=== PATIENT | male | born 1975 | race Caucasian/White ===

== ENCOUNTER 2023-09-17 11:51 | Outpatient (REF) | payer OTHER, SELFPAY ==
[2023-09-17 12:07] LABS: MANUAL DIFF FLAG NO
[2023-09-17 12:36] LABS: Estimated Average Glucose 105 mg/dL; Hemoglobin A1c % 5.3 % (<6.0)
[2023-09-17 12:41] LABS: Basophils Percent Auto 0.3 % (0-2); Eosinophils Absolute Auto 0.1 X10*3/uL (0.0-0.4); Eosinophils Percent Auto 2.2 % (0-4); Imm Gran Abs Auto 0.01 X10*3/uL (0.00-0.03); Imm Gran Pct Auto 0.2 % (0.0-0.4); Lymphocytes Absolute Auto 2.5 X10*3/uL (1.2-4.9); Lymphocytes Percent Auto 40.1 % (20-40); Mean Corpuscular HGB Conc 33.3 g/dl (31.0-36.0); Mean Corpuscular Hemoglobin 28.5 pg (27.0-33.0); Mean Corpuscular Volume 85.6 fL (80.0-98.0); Mean Platelet Volume 10.7 fL (9.4-12.4); Monocytes Absolute Auto 0.6 X10*3/uL (0.1-1.2); Monocytes Percent Auto 10.1 % (2-11); Neutrophils Percent Auto 47.1 % (45-73); Platelet Count 242 X10*3/uL (160-400); Red Blood Count 5.61 X10*6/uL (4.60-5.80); Red Cell Distribution Width 12.8 % (11.0-16.0); White Blood Count 6.3 X10*3/uL (4.8-10.8)
[2023-09-17 13:15] LABS: Alanine Aminotransferase 28 U/L (0-40); Albumin Level 3.9 g/dL (3.5-5.0); Alkaline Phosphatase 83 U/L (39-117); Anion Gap 12 (12-20); Aspartate Amino Transferase 22 U/L (5-37); Bilirubin Total 0.6 mg/dL (0.0-1.0); Blood Urea Nitrogen 17 mg/dL (9-16); Carbon Dioxide 27 mmol/L (22-29); Chloride 110 mmol/L (96-108); Cholesterol 160 mg/dL (<200); Estimated Glomerular Filt Rate > 60; Glucose Random 92 mg/dL (60-115); HDL Cholesterol 39 mg/dL (>40); LDL Cholesterol Calculated 108 mg/dL (<100); Potassium 4.1 mmol/L (3.3-5.1); Sodium 145 mmol/L (135-145); Thyroid Stimulating Hormone 2.71 uIU/mL (0.32-4.0); Total Protein 6.9 g/dL (6.5-8.0); Triglycerides 67 mg/dL (<150)
== END 2023-09-17 11:52 | disposition home or self-care (01) ==
LOC: HO.LAB 11:51
PROVIDERS: PCP Internal Medicine; Visit Provider Internal Medicine
DX: Z00.01 Encounter for general adult medical examination with abnormal findings (principal); E66.01 Morbid (severe) obesity due to excess calories; E78.00 Pure hypercholesterolemia, unspecified; R55 Syncope and collapse; I10 Essential (primary) hypertension; Z86.73 Personal history of transient ischemic attack (TIA), and cerebral infarction without residual deficits
CPT/HCPCS: 36415; 80053; 80061; 83036; 84443; 85025

== ENCOUNTER 2023-10-12 14:46 | Outpatient (AMB) | payer OTHER, SELFPAY ==
--- NOTE | 2023-10-12 14:51 | HO.NEPHOV ---
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 He has neurological issues for which he has been seen in [facility], Division of Neurology. He underwent tilt table testing which was negative. He had skin biopsy which was positive for decreased epidermal nerve fiber density. He also had EMG and nerve conduction studies which showed mild degree of fibrillation potentials in the right tibialis anterior and medial gastrocnemius and chronic denervation in right peroneal muscle. He also has a mild L5-S1 radiculopathy, right ulnar neuropathy, mild cervical radiculopathy at C6. He also feels he has light memory loss and occasionally drops things from his right hand. He gets lightheadedness intermittently. He has 2 episodes of syncope recently. He feels he has salads in walking as he get lightheaded. He is known to have hypertension as well as sleep apnea. He is on CPAP. He has high BMI. He had extensive cardiac and neurological workup. He has been on amlodipine as well as carvedilol. He denies any chest pain, shortness of breath, proximal nocturnal dyspnea, orthopnea, worsening pedal edema or urinary symptoms. He claims to be compliant with his blood pressure medications. He has no history of any drug use. He denies any flushing, diarrhea, palpitation. There is no known documented history of any autonomic neuropathy. He is not known to have any cardiomyopathy. He has no family history of any renal or neurological issues. [facility] Medical History (Updated 11/06/23 @ 09:04 by Milad Segovia MD) High cholesterol Chronic neurologic disease Sleep apnea Hypertension Surgical History (Updated 10/10/23 @ 14:39 by Danyelle Lala MA) History of testicular surgery Family History (Updated 10/12/23 @ 14:59 by Danyelle Lala MA) Father Diabetes Hypertension Mother Diabetes Hypertension Social History (Updated 10/12/23 @ 15:01 by Danyelle Lala MA) Alcohol intake: current Comment: Rare Patient Tobacco Use Status: Never used Tobacco Physical Exam Vital Signs: Last Vital Signs Pulse 65 10/12/23 14:53 BP 132/72 10/12/23 14:53 Pulse Ox 95 10/12/23 14:53 Oxygen Delivery Method Room Air 10/12/23 14:53 BMI result Body Mass Index 45.1 Const General: comfortable and no acute distress Orientation/consciousness: patient oriented x3 HEENT Head: Yes normocephalic Mouth: Normal oral and palatal mucosa present Eyes EOM: EOMs intact bilaterally Neck Neck: Yes supple Resp Auscultation: clear to auscultation bilaterally Cardio Jugular venous distension: no JVD Rate: regular rate GI Palpation (GI): Soft to palpation Auscultation: normal bowel sounds General: Yes no CVA tenderness Back/Spine/Pelvis Back: no CVA tenderness Skin General skin exam: no rashes or lesions noted Neuro General: patient oriented x3 and moves all extremities Extrem General: Yes no pedal edema Results Reviewed Nephrology Results: Hgb 16.0 g/dl (14.0-18.0) 09/17/23 WBC 6.3 X10*3/uL (4.8-10.8) 09/17/23 Plt Count 242 X10*3/uL (160-400) 09/17/23 Sodium 145 mmol/L (135-145) 09/17/23 Potassium 4.1 mmol/L (3.3-5.1) 09/17/23 Chloride 110 mmol/L (96-108) H 09/17/23 Carbon Dioxide 27 mmol/L (22-29) 09/17/23 BUN 17 mg/dL (9-16) H 09/17/23 Creatinine 1.00 mg/dL (0.5-1.4) 09/17/23 Calcium 9.0 mg/dL (8.4-10.2) 09/17/23 Assessment & Plan Assessment & Plan (1) Hypertension: Code(s): I10 - Essential (primary) hypertension Category: Medical Qualifiers: Hypertension type: primary hypertension Qualified Code(s): I10 - Essential (primary) hypertension Plan Charles has longstanding hypertension and is currently on 2 antihypertensive medications. He is not known to have any hypokalemia, hypercalcemia, uncontrolled thyroid disorders. He has obstructive sleep apnea and is compliant with CPAP. He does not consume excess sodium in the diet. His renal functions are at baseline. He is not known to have any proteinuria. I asked him to continue on his current medications for now. I plan to do a 24 hour blood pressure monitor for detail evaluation. He has no diagnosis of POTS syndrome or any autonomic neuropathy. He has chronic neurological issues. More than 50% time spent discussing about possible etiologies and management strategies. I spoke to his on the phone during his office visit. Answered all questions and follow-up appointment given. Coding Level of Care Code New Pt Level 4 (06625) Diagnoses Primary hypertension I10 Hypertension type: primary hypertension
[2023-10-12 14:53] VITALS: BP 132/72; PULSE 65; O2SAT 95; BMI 45.1
== END 2023-10-12 15:24 | disposition home or self-care (01) ==
PROVIDERS: PCP Internal Medicine; Visit Provider Internal Medicine Nephrology
DX: I10 Essential (primary) hypertension (principal)
CPT/HCPCS: 99204

== ENCOUNTER → 2023-10-12 14:46 | Outpatient (BNVA) | payer OTHER, SELFPAY | PROVIDERS: PCP Internal Medicine; Visit Provider Internal Medicine Nephrology ==

== ENCOUNTER 2023-11-06 14:26 | Outpatient (AMB) | payer OTHER, SELFPAY ==
[2023-11-06 14:55] VITALS: BP 134/86; PULSE 64; O2SAT 97; BMI 44.4
--- NOTE | 2023-11-06 14:55 | HO.NEPHOV ---
Vital Signs 11/06/23 14:55 Height 6 ft Weight 327 lb 4 oz BMI 44.4 BP 134/86 Blood Pressure Location Rt brachial Position Sitting Pulse 64 Pulse Source Pulse Oximeter Pulse Oximetry (%) 97 Oxygen Delivery Method Room Air Intake Visit Reasons: Hematuria- [facility]/ Confirmed Patient Educator Required: No Accompanied by: Self / Same As Patient Allergies No Known Allergies Allergy (Verified 11/06/23 14:59) HPI Comments Details: I had the privilege of seeing Charles in follow up for labile hypertension. He has neurological issues for which he has been seen in [facility], Division of Neurology. He underwent tilt table testing which was negative. He had skin biopsy which was positive for decreased epidermal nerve fiber density. He also had EMG and nerve conduction studies which showed mild degree of fibrillation potentials in the right tibialis anterior and medial gastrocnemius and chronic denervation in right peroneal muscle. He also has a mild L5-S1 radiculopathy, right ulnar neuropathy, mild cervical radiculopathy at C6. He also feels he has light memory loss and occasionally drops things from his right hand. He gets lightheadedness intermittently. He has 2 episodes of syncope recently. He feels he has salads in walking as he get lightheaded. He is known to have hypertension as well as sleep apnea. He is on CPAP. He has high BMI. He had extensive cardiac and neurological workup. He has been on amlodipine as well as carvedilol. He denies any chest pain, shortness of breath, proximal nocturnal dyspnea, orthopnea, worsening pedal edema or urinary symptoms. He claims to be compliant with his blood pressure medications. He has no history of any drug use. He denies any flushing, diarrhea, palpitation. There is no known documented history of any autonomic neuropathy. He is not known to have any cardiomyopathy. He has no family history of any renal or neurological issues. He recently had hematuria with left flank pain . He also had right sided abdominal pain. He was seen in [place] [facility] . He had CT with contrast which didnt show any significant abnormailities. [facility] Medical History (Updated 11/06/23 @ 15:42 by Milad Segovia MD) High cholesterol Chronic neurologic disease Sleep apnea Hypertension Surgical History History of testicular surgery Family History Father Diabetes Hypertension Mother Diabetes Hypertension Social History Alcohol intake: current Comment: Rare Patient Tobacco Use Status: Never used Tobacco Physical Exam Vital Signs: Last Vital Signs Pulse 64 11/06/23 14:55 BP 134/86 11/06/23 14:55 Pulse Ox 97 11/06/23 14:55 Oxygen Delivery Method Room Air 11/06/23 14:55 BMI result Body Mass Index 44.4 Const General: comfortable and no acute distress Orientation/consciousness: patient oriented x3 HEENT Head: Yes normocephalic Mouth: Normal oral and palatal mucosa present Eyes EOM: EOMs intact bilaterally Neck Neck: Yes supple Resp Auscultation: clear to auscultation bilaterally Cardio Jugular venous distension: no JVD Rate: regular rate GI Palpation (GI): Soft to palpation Auscultation: normal bowel sounds General: Yes no CVA tenderness Back/Spine/Pelvis Back: no CVA tenderness Skin General skin exam: no rashes or lesions noted Neuro General: patient oriented x3 and moves all extremities Extrem General: Yes no pedal edema Results Reviewed Nephrology Results: Hgb 16.0 g/dl (14.0-18.0) 09/17/23 WBC 6.3 X10*3/uL (4.8-10.8) 09/17/23 Plt Count 242 X10*3/uL (160-400) 09/17/23 Sodium 145 mmol/L (135-145) 09/17/23 Potassium 4.1 mmol/L (3.3-5.1) 09/17/23 Chloride 110 mmol/L (96-108) H 09/17/23 Carbon Dioxide 27 mmol/L (22-29) 09/17/23 BUN 17 mg/dL (9-16) H 09/17/23 Creatinine 1.00 mg/dL (0.5-1.4) 09/17/23 Calcium 9.0 mg/dL (8.4-10.2) 09/17/23 Assessment & Plan Assessment & Plan (1) Hypertension: Code(s): I10 - Essential (primary) hypertension Category: Medical Qualifiers: Hypertension type: primary hypertension Qualified Code(s): I10 - Essential (primary) hypertension (2) Renal calculus: Code(s): N20.0 - Calculus of kidney Category: Medical Plan Charles has longstanding hypertension and is currently on 2 antihypertensive medications. He is not known to have any hypokalemia, hypercalcemia, uncontrolled thyroid disorders. He has obstructive sleep apnea and is compliant with CPAP. His renal functions had been at baseline which has gone up marginally , likely due to renal calculus. He is not known to have any proteinuria. I asked him to continue on his current medications for now. I ordered 24 hour urine for stone screen and plan to do a 24 hour blood pressure monitor with time for detail evaluation. He has no diagnosis of POTS syndrome or any autonomic neuropathy. He has chronic neurological issues. I plan to repeat renal function. I will do a renal USS with time for F/U. I plan to start him on chlorthalidone and or K citrate at next visit. More than 50% time spent discussing about possible etiologies and management strategies. Answered all questions and follow-up appointment given. Orders: Orders Blood Urea Nitrogen Today I10 - Essential (primary) hypertension, N20.0 - Calculus of kidney Electrolytes Today I10 - Essential (primary) hypertension, N20.0 - Calculus of kidney Sodium, 24Hr Urine Group Today I10 - Essential (primary) hypertension, N20.0 - Calculus of kidney Calcium, 24 Hr Ur Today I10 - Essential (primary) hypertension, N20.0 - Calculus of kidney Oxalate, 24 Hr Today I10 - Essential (primary) hypertension, N20.0 - Calculus of kidney Citric Acid 24hr Urine Today I10 - Essential (primary) hypertension, N20.0 - Calculus of kidney Basic Metabolic Panel Today I10 - Essential (primary) hypertension, N20.0 - Calculus of kidney Calcium Today I10 - Essential (primary) hypertension, N20.0 - Calculus of kidney UA w Microscopic Today I10 - Essential (primary) hypertension, N20.0 - Calculus of kidney Uric Acid Today I10 - Essential (primary) hypertension, N20.0 - Calculus of kidney Creatinine Today I10 - Essential (primary) hypertension, N20.0 - Calculus of kidney Uric Acid, 24Hr Urine Group Today I10 - Essential (primary) hypertension, N20.0 - Calculus of kidney Coding Level of Care Code Est Pt Level 4 (79933) Diagnoses Primary hypertension I10 Hypertension type: primary hypertension Renal calculus N20.0
== END 2023-11-06 15:51 | disposition home or self-care (01) ==
PROVIDERS: PCP Internal Medicine; Visit Provider Internal Medicine Nephrology
DX: I10 Essential (primary) hypertension (principal); N20.0 Calculus of kidney
CPT/HCPCS: 99214

== ENCOUNTER → 2023-11-06 14:26 | Outpatient (BNVA) | payer OTHER, SELFPAY | PROVIDERS: PCP Internal Medicine; Visit Provider Internal Medicine Nephrology ==

== ENCOUNTER 2024-02-12 13:00 | Outpatient (REF) | payer OTHER, SELFPAY ==
[2024-02-12 14:12] LABS: Anion Gap 10 (12-20); Blood Urea Nitrogen 16 mg/dL (9-16); Calcium 9.2 mg/dL (8.4-10.2); Carbon Dioxide 28 mmol/L (22-29); Chloride 107 mmol/L (96-108); Estimated Glomerular Filt Rate > 60; Glucose Random 108 mg/dL (60-115); Sodium 141 mmol/L (135-145); Uric Acid 5.7 mg/dL (3.4-7.0)
== END 2024-02-12 13:01 | disposition home or self-care (01) ==
LOC: HO.LAB 13:00
PROVIDERS: PCP Internal Medicine; Visit Provider Internal Medicine Nephrology
DX: N20.0 Calculus of kidney (principal); I10 Essential (primary) hypertension
CPT/HCPCS: 36415; 80048; 84550

== ENCOUNTER 2024-02-14 11:40 | Outpatient (REF) | payer OTHER, SELFPAY ==
[2024-02-14 12:57] LABS: Creatinine, mg/dL 153.94
[2024-02-14 13:00] LABS: Uric Acid, mg/dL 58.7 mg/dL
[2024-02-14 13:49] LABS: Creatinine, 24Hr Urine 2.9 G/Day (1.0-2.0); Total Volume 24 Hour Urine 1925 mL
[2024-02-16 18:38] LABS: Calcium, 24 Hr Urine 285 mg/24 h; Calcium/Creatinine Ratio 100 mg/g creat (30-210); Creatinine 24Hr Urine 2.85 g/24 h (0.50-2.15)
[2024-02-20 21:57] LABS: 24hr Urine Total Volume 1925 mL; Citric Acid, 24hr Urine 629 mg/24 h (100-1300); Citric Acid/Creat Ratio 24U 217 mg/g creat (60-660)
[2024-02-28 05:09] LABS: 24hr Urine Total Volume 1925 mL
== END 2024-02-14 11:41 | disposition home or self-care (01) ==
LOC: HO.LNP 11:40
PROVIDERS: Visit Provider Internal Medicine Nephrology
DX: N20.0 Calculus of kidney (principal); I10 Essential (primary) hypertension
CPT/HCPCS: 82340; 82507; 83945; 84300; 84560

== ENCOUNTER 2024-02-22 10:49 | Outpatient (AMB) | payer OTHER, SELFPAY ==
--- NOTE | 2024-02-22 10:52 | HO.NEPHOV_ITS ---
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 He has neurological issues for which he has been seen in [facility], Division of Neurology. He underwent tilt table testing which was negative. He had skin biopsy which was positive for decreased epidermal nerve fiber density. He also had EMG and nerve conduction studies which showed mild degree of fibrillation potentials in the right tibialis anterior and medial gastrocnemius and chronic denervation in right peroneal muscle. He also has a mild L5-S1 radiculopathy, right ulnar neuropathy, mild cervical radiculopathy at C6. He also feels he has light memory loss and occasionally drops things from his right hand. He gets lightheadedness intermittently. He has 2 episodes of syncope recently. He feels he has salads in walking as he get lightheaded. He is known to have hypertension as well as sleep apnea. He is on CPAP. He has high BMI. He had extensive cardiac and neurological workup. He has been on amlodipine as well as carvedilol. He denies any chest pain, shortness of breath, proximal nocturnal dyspnea, orthopnea, worsening pedal edema or urinary symptoms. He claims to be compliant with his blood pressure medications. He h as no history of any drug use. He denies any flushing, diarrhea, palpitation. There is no known documented history of any autonomic neuropathy. He is not known to have any cardiomyopathy. He has no family history of any renal or neurological issues. He recently had hematuria with left flank pain . He also had right sided abdominal pain. He was seen in [place] [facility] . He had CT with contrast which didnt show any significant abnormailities. He also recently had a UTI and was seen in [place] [facility]. [facility] Medical History (Updated 11/06/23 @ 15:42 by Milad Segovia MD) High cholesterol Chronic neurologic disease Sleep apnea Hypertension Surgical History History of testicular surgery Family History Father Diabetes Hypertension Mother Diabetes Hypertension Social History Alcohol intake: current Comment: Rare Patient Tobacco Use Status: Never used Tobacco Review of Systems Const All systems reviewed & are unremarkable except as noted in HPI and below Physical Exam Vital Signs: Last Vital Signs Pulse 61 02/22/24 10:53 BP 130/80 02/22/24 10:53 Pulse Ox 96 02/22/24 10:53 Oxygen Delivery Method Room Air 02/22/24 10:53 BMI result Body Mass Index 44.2 Const General: comfortable and no acute distress Orientation/consciousness: patient oriented x3 HEENT Head: Yes normocephalic Mouth: Normal oral and palatal mucosa present Eyes EOM: EOMs intact bilaterally Neck Neck: Yes supple Resp Auscultation: clear to auscultation bilaterally Cardio Jugular venous distension: no JVD Rate: regular rate GI Palpation (GI): Soft to palpation Auscultation: normal bowel sounds General: Yes no CVA tenderness Back/Spine/Pelvis Back: no CVA tenderness Skin General skin exam: no rashes or lesions noted Neuro General: patient oriented x3 and moves all extremities Extrem General: Yes no pedal edema Results Reviewed Nephrology Results: Hgb 16.0 g/dl (14.0-18.0) 09/17/23 WBC 6.3 X10*3/uL (4.8-10.8) 09/17/23 Plt Count 242 X10*3/uL (160-400) 09/17/23 Sodium 141 mmol/L (135-145) 02/12/24 Potassium 4.0 mmol/L (3.3-5.1) 02/12/24 Chloride 107 mmol/L (96-108) 02/12/24 Carbon Dioxide 28 mmol/L (22-29) 02/12/24 BUN 16 mg/dL (9-16) 02/12/24 Creatinine 0.97 mg/dL (0.5-1.4) 02/12/24 Calcium 9.2 mg/dL (8.4-10.2) 02/12/24 Assessment & Plan Assessment & Plan (1) Hypertension: Code(s): I10 - Essential (primary) hypertension Category: Medical Qualifiers: Hypertension type: primary hypertension Qualified Code(s): I10 - Essential (primary) hypertension (2) Renal calculus: Code(s): N20.0 - Calculus of kidney Category: Medical Plan Charles has longstanding hypertension and is currently on 2 antihypertensive medications. He is not known to have any hypokalemia, hypercalcemia, uncontrolled thyroid disorders. He has obstructive sleep apnea and is compliant with CPAP. His renal functions had been at baseline .He is not known to have any proteinuria. I asked him to continue on his current medications for now. He has no diagnosis of POTS syndrome or any autonomic neuropathy. He has chronic neurological issues. I ordered a follow up renal USS . I plan to start him on chlorthalidone and or K citrate, if he continues to have stones. Answered all questions and follow-up appointment given. Orders: Orders US renal BI Today I10 - Essential (primary) hypertension, N20.0 - Calculus of kidney Coding Level of Care Code Est Pt Level 4 (38347) Diagnoses Primary hypertension I10 Hypertension type: primary hypertension Renal calculus N20.0
[2024-02-22 10:53] VITALS: BP 130/80; PULSE 61; O2SAT 96; BMI 44.2
== END 2024-02-22 11:30 | disposition home or self-care (01) ==
PROVIDERS: PCP Internal Medicine; Visit Provider Internal Medicine Nephrology
DX: I10 Essential (primary) hypertension (principal); N20.0 Calculus of kidney
CPT/HCPCS: 99214

== ENCOUNTER → 2024-02-22 10:49 | Outpatient (BNVA) | payer OTHER, SELFPAY | PROVIDERS: PCP Internal Medicine; Visit Provider Internal Medicine Nephrology ==

== ENCOUNTER 2024-03-03 08:43 | Outpatient (REF) | payer OTHER, SELFPAY ==
--- NOTE | ~2024-03-03 | US_ITS ---
EXAMINATION: US RETROPERITONEAL COMPLETE (RENAL) CLINICAL INFORMATION: Primary hypertension.. COMPARISON: None available. TECHNIQUE: Real-time imaging of the kidneys and bladder. Color Doppler exam was used. FINDINGS: RIGHT KIDNEY: 12.5 x 4.5 x 7.9 cm (SAG x AP x TRV). The kidney is normal in size, contour, and echogenicity. Renal cortical thickness is normal. No calculi or suspicious focal parenchymal lesions. No hydronephrosis. LEFT KIDNEY: 11.7 x 6 x 6.9 cm (SAG x AP x TRV). The kidney is normal in size, contour, and echogenicity. Normal variant of hypertrophied column of Anish. Renal cortical thickness is normal. No calculi or suspicious focal parenchymal lesions. No hydronephrosis. Anechoic cyst in the upper pole. There is a 1.2 cm cyst in the 3.8 cm cyst. No follow-up imaging is recommended for simple renal cyst. US/US renal BI IMPRESSION: Normal ultrasound of kidneys. Electronically signed by: Justice Garvey MD 03/03/2024 04:03 PM EDT
== END 2024-03-03 08:44 | disposition home or self-care (01) ==
LOC: HO.US 08:43
PROVIDERS: PCP Internal Medicine; Visit Provider Internal Medicine Nephrology
DX: N20.0 Calculus of kidney (principal); I10 Essential (primary) hypertension
CPT/HCPCS: 76775

== ENCOUNTER 2024-03-05 09:08 | Outpatient (AMB) | payer OTHER, SELFPAY ==
--- NOTE | 2024-03-05 09:13 | A.OFFVIS_ITS ---
Intake Visit Reasons: hematuria Intake Note: Patient is present for HEMATURIA Urology Medication:NONE Antibiotic Allergy:NONE Blood Thinner:NONE Magneto Specialist Required: No Allergies No Known Allergies Allergy (Verified 03/05/24 09:14) HPI Comments Details: Charles is a 48-year-old male who is here evaluation for hematuria. The patient states that several weeks ago he had pain with urination and looked into the toilet and saw blood in the urine. He went to [facility] emergency room he states that he had evaluation including CT imaging and they told him they could not find any problems. About 6 weeks ago he again noted issues with urination pain in difficult stream he was seen at [place] and treated for urinary tract infection. He states he has noted changes with urination urgency and frequency. AUA symptom score 11. He was referred for urology evaluation. Chart reviewed renal ultrasound --was within normal limits small renal cyst. Negative as for kidney stones mass or hydronephrosis. I will obtain records from [facility] and [place]. The patient also notes that he is followed in [place] for a neurological problem that they told him was dis autonomic area. 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 he has also had problems of dizziness. His current medications are for hypertension and cholesterol. I have discussed further evaluation with cystoscopy will check PSA. Will send urine for cytology. [facility] Medical History High cholesterol Chronic neurologic disease Sleep apnea Hypertension Surgical History History of testicular surgery Family History Father Diabetes Hypertension Mother Diabetes Hypertension Social History Alcohol intake: current Comment: Rare Patient Tobacco Use Status: Never used Tobacco Review of Systems Const All systems reviewed & are unremarkable except as noted in HPI and below Reports no additional complaints Eyes Reports no additional complaints ENT Reports no additional complaints Card Reports no additional complaints Resp Reports no additional complaints GI Reports no additional complaints Reports as per HPI Musc Reports no additional complaints Skin/Breast Reports system reviewed and no additional complaints, except as documented Neuro Reports no additional complaints Psych Reports no additional complaints Endo Reports no additional complaints Jose/Lymph Reports no additional complaints Aller/Immun Reports no additional complaints Physical Exam Const General: healthy appearing, no acute distress and well developed Nutritional Appearance: overweight Orientation/consciousness: patient oriented x3 HEENT Head: Yes normocephalic and Yes atraumatic Eyes Conjunctivae: conjunctivae normal Neck Neck: Yes normal visual inspection Chest Chest palpation & inspection: normal inspection of the chest Resp Effort & Inspection: normal respiratory effort Cardio Rate: regular rate GI Inspection: Yes normal to inspection Palpation (GI): Soft to palpation Skin General skin exam: no rashes or lesions noted Neuro General: patient oriented x3 Extrem General: No pedal edema Psych Appearance: grossly normal Affect: normal affect Office Procedures Post Void Residual Post Residual Void Post Void Residual (PVR): 24 [id number] Void Residual by ultrasound Results AMB Urinalysis, Automated UA Leukoctes 0 Alicia/uL Last Edit by TERRY Sequeira on 03/05/24 09:28 UA Nitrite Negative Last Edit by TERRY Sequeira on 03/05/24 09:28 UA Urobilinogen 0.2 mg/dL Last Edit by TERRY Sequeira on 03/05/24 09:2 8 UA Protein 15 mg/dL Last Edit by TERRY Sequeira on 03/05/24 09:28 UA pH 6.0 Last Edit by TERRY Sequeira on 03/05/24 09:28 UA Blood 0 Jeronimo/uL Last Edit by TERRY Sequeira on 03/05/24 09:28 UA Specific [place] 1.025 Last Edit by TERRY Sequeira on 03/05/24 09: 28 UA Ketone Negative Last Edit by TERRY Sequeira on 03/05/24 09:28 UA Bilirubin 0 mg/dL Last Edit by TERRY Sequeira on 03/05/24 09:28 UA Glucose 0 mg/dL Last Edit by TERRY Sequeira on 03/05/24 09:28 Quality Reporting (2019) Benign Prostatic Hyperplasia ([facility] 771) AUA symptom score: 11 Quality of life due to urinary symptoms: If you were to spend the rest of your life with your urinary condition the way it is now, how would you feel about that?: Mostly dissatisfied Results Reviewed Results Reviewed: Laboratory Last Values Urine pH (Auto) 6.0 03/05/24 09:27 Specific [place] (Auto) 1.025 03/05/24 09:27 Urine Protein (Auto) 15 mg/dL 03/05/24 09:27 Glucose (UA)(Auto) 0 mg/dL 03/05/24 09:27 Urine Ketones (Auto) Negative 03/05/24 09:27 Urine Blood (Auto) 0 Jeronimo/uL 03/05/24 09:27 Urine Nitrite (Auto) Negative 03/05/24 09:27 Urine Bilirubin (Auto) 0 mg/dL 03/05/24 09:27 Urine Urobilinogen (Auto) 0.2 mg/dL 03/05/24 09:27 Leukocyte Esterase (Auto) 0 Alicia/uL 03/05/24 09:27 Date of Service: 03/03/24 EXAMINATION: US RETROPERITONEAL COMPLETE (RENAL) CLINICAL INFORMATION: Primary hypertension.. COMPARISON: None available. TECHNIQUE: Real-time imaging of the kidneys and bladder. Color Doppler exam was used. FINDINGS: RIGHT KIDNEY: 12.5 x 4.5 x 7.9 cm (SAG x AP x TRV). The kidney is normal in size, contour, and echogenicity. Renal cortical thickness is normal. No calculi or suspicious focal parenchymal lesions. No hydronephrosis. LEFT KIDNEY: 11.7 x 6 x 6.9 cm (SAG x AP x TRV). The kidney is normal in size, contour, and echogenicity. Normal variant of hypertrophied column of Anish. Renal cortical thickness is normal. No calculi or suspicious focal parenchymal lesions. No hydronephrosis. Anechoic cyst in the upper pole. There is a 1.2 cm cyst in the 3.8 cm cyst. No follow-up imaging is recommended for simple renal cyst. IMPRESSION: Normal ultrasound of kidneys. Assessment & Plan Assessment & Plan (1) Screening PSA (prostate specific antigen): Code(s): Z12.5 - Encounter for screening for malignant neoplasm of prostate Category: Medical (2) UTI (urinary tract infection): Code(s): N39.0 - Urinary tract infection, site not specified Category: Medical (3) Hematuria: Code(s): R31.9 - Hematuria, unspecified Category: Medical (4) Urinary frequency: Code(s): R35.0 - Frequency of micturition Category: Medical Plan He was referred for urology evaluation. Chart reviewed renal ultrasound --was within normal limits small renal cyst. Negative as for kidney stones mass or hydronephrosis. I will obtain records from [facility] and [place]. I have discussed further evaluation with cystoscopy will check PSA. Will send urine for cytology. Orders: Orders AMB Urinalysis Automated Today Z13.9 - Encounter for screening, unspecified PSA,Total (Free>4and<10) Today Z12.5 - Encounter for screening for malignant neoplasm of prostate Patient Instructions: The patient had an opportunity to ask questions regarding treatment plan. The patient expressed understanding and agreement with the above treatment plan. The patient is aware they should contact our office by phone for worsening of their current condition or the appearance of new symptoms. Compliance is encouraged with any medications and followup testing that is ordered. It is a privilege to be allowed the opportunity to participate in the urologic care of your patient. If you have any questions or concerns regarding treatment for the above conditions please do not hesitate to contact me. The office telephone contact is [phone]. This note is constructed in part using voice recognition software. While every effort has been made to ensure accuracy harness builder errors may have been included. Yours sincerely, Mario Fountain MD Coding Level of Care Code New Pt Level 4 (72198) Diagnoses Screening PSA (prostate specific antigen) Z12.5 UTI (urinary tract infection) N39.0 Hematuria R31.9 Urinary frequency R35.0 CPT Codes Post Residual Void - PVR CPT Code: 25542-Opby Void Residual by ultrasound ([id number]) AUA Symptom Score AUA Incomplete emptying - It does not feel like I empty my bladder all the way.: 0 - Not at all Frequency - I have to go again less than two hours after I finish urinating.: 5 - Almost always Intermittency - I stop and start again several times when I urinate.: 0 - Not at all Urgency - It is hard to wait when I have to urinate.: 5 - Almost always Weak stream - I have a weak urinary stream.: 0 - Not at all Straining - I have to push or strain to begin urination.: 0 - Not at all Nocturia - I get up to urinate after I go to bed until the time I get up in the morning.: 1 time AUA Symptom Score: 11 Quality of life due to urinary symptoms: If you were to spend the rest of your life with your urinary condition the way it is now, how would you feel about that?: Mostly dissatisfied Source: Basilio THOMPSON, Parul ALVAREZ Jr, [place] MP, et al, and the Measurement Committee of the [employer]. The [employer] [employer] symptom index for benign prostatic hyperplasia. J Urol. 1992; 148: 6587-8544. Copyright 1992 [employer] [employer]
== END 2024-03-05 10:13 | disposition home or self-care (01) ==
PROVIDERS: PCP Internal Medicine; Visit Provider Urology
DX: Z12.5 Encounter for screening for malignant neoplasm of prostate (principal); N39.0 Urinary tract infection, site not specified; R31.9 Hematuria, unspecified; R35.0 Frequency of micturition; Z13.9 Encounter for screening, unspecified
CPT/HCPCS: 99204

== ENCOUNTER → 2024-03-05 09:08 | Outpatient (BNVA) | payer OTHER, SELFPAY | PROVIDERS: PCP Internal Medicine; Visit Provider Urology | DX: R31.9 Hematuria, unspecified (principal); R35.0 Frequency of micturition; N39.0 Urinary tract infection, site not specified | CPT/HCPCS: 51798; 81003 ==

== ENCOUNTER 2024-03-05 10:14 | Outpatient (REF) | payer OTHER, SELFPAY ==
[2024-03-05 12:02] LABS: PSA,Total (Free>4and<10) 1.73 ng/mL (0.00-4.00)
== END 2024-03-05 10:15 | disposition home or self-care (01) ==
LOC: HO.10HDL 10:14
PROVIDERS: Visit Provider Urology
DX: Z12.5 Encounter for screening for malignant neoplasm of prostate (principal); Z13.9 Encounter for screening, unspecified
CPT/HCPCS: 36415; 84153

== ENCOUNTER 2024-03-21 11:31 | Outpatient (REF) | payer OTHER, SELFPAY ==
[2024-03-21 12:20] LABS: Urine Cytology See Pathology rpt
[2024-03-21 12:28] LABS: Appearance Urine Clear; Color Urine Yellow; Glucose Urine UA 500 mg/dL (Negative); Leukocyte Esterase Urine Negative (Negative); Nitrite Urine Negative (Negative); PH 5.5 (5.0-9.0); Specific Gravity - Urine 1.025 (1.005-1.025); Urine Blood Negative (Negative); Urine Ketones Trace mg/dL (Negative); Urine Protein Negative (Neg-Trace)
[2024-03-21 12:31] LABS: Bacteria Urine None Seen (None Seen); Hyaline Casts Urine 0-2 /LPF (0-2); RBC Urine 0-2 /HPF (0-2); Squamous Epithelial Cell Urine 0-2 /HPF (0-2); WBC Urine 0-5 /HPF (0-5)
== END 2024-03-21 11:32 | disposition home or self-care (01) ==
LOC: HO.LAB 11:31
PROVIDERS: Internal Medicine Nephrology; PCP Internal Medicine; Visit Provider Urology
DX: N20.0 Calculus of kidney (principal); I10 Essential (primary) hypertension; R35.0 Frequency of micturition; R31.9 Hematuria, unspecified; N39.0 Urinary tract infection, site not specified; Z12.5 Encounter for screening for malignant neoplasm of prostate
CPT/HCPCS: 81001; 88112

== ENCOUNTER 2024-03-24 13:29 | Outpatient (AMB) | payer OTHER, SELFPAY ==
--- NOTE | 2024-03-24 13:34 | MHC.OFFVIS ---
Intake Visit Reasons: cysto/PSA Intake Note: Patient is present for Cystoscopy/PSA Urology Medication:NONE Antibiotic Allergy:NONE Blood Thinner:NONE Lot:[id number] Exp:05/12/27 E Learning Manager Required: No Allergies No Known Allergies Allergy (Verified 03/24/24 13:35) Medication List - Last Reconciled 03/24/24 by Mario Fountain MD alfuzosin ER 10 mg PO QPM amlodipine 10 mg PO DAILY atorvastatin 20 mg PO DAILY carvedilol 12.5 mg PO BID HPI Comments Details: 03/24/24-- Here for cysto. Cystoscopy findings: prostatic urethra bilobar enlargement, bulbous urethra WNL, no suspicious bladder lesions visualized. Will trial alfuzosin. Reviewed possible SE to including dizziness, decrease BP, retrograd ejaculation. FU in 2 months 03/05/24--Charles is a 48-year-old male who is here evaluation for hematuria. The patient states that several weeks ago he had pain with urination and looked into the toilet and saw blood in the urine. He went to [facility] emergency room he states that he had evaluation including CT imaging and they told him they could not find any problems. About 6 weeks ago he again noted issues with urination pain in difficult stream he was seen at [place] and treated for urinary tract infection. He states he has noted changes with urination urgency and frequency. AUA symptom score 11. He was referred for urology evaluation. Chart reviewed renal ultrasound --was within normal limits small renal cyst. Negative as for kidney stones mass or hydronephrosis. I will obtain records from [facility] and [place]. The patient also notes that he is followed in [place] for a neurological problem that they told him was dis autonomic area. 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 he has also had problems of dizziness. His current medications are for hypertension and cholesterol. I have discussed further evaluation with cystoscopy will check PSA. Will send urine for cytology. [facility] Medical History High cholesterol Chronic neurologic disease Sleep apnea Hypertension Surgical History History of testicular surgery Family History Father Diabetes Hypertension Mother Diabetes Hypertension Social History Alcohol intake: current Comment: Rare Patient Tobacco Use Status: Never used Tobacco Review of Systems Const All systems reviewed & are unremarkable except as noted in HPI and below Reports no additional complaints Eyes Reports no additional complaints ENT Reports no additional complaints Card Reports no additional complaints Resp Reports no additional complaints GI Reports no additional complaints Reports as per HPI Musc Reports no additional complaints Skin/Breast Reports system reviewed and no additional complaints, except as documented Neuro Reports no additional complaints Psych Reports no additional complaints Endo Reports no additional complaints Jose/Lymph Reports no additional complaints Aller/Immun Reports no additional complaints Office Procedures Cystoscopy Consent Discussed risk and benefit or proposed procedure with the patient. Information consent for procedure given to the patient. Discussed technical aspects, risks, benefits and alternatives in full. Addressed all of the patient's questions and concerns regarding the procedure. The patient demonstrated knowledge and understanding. They wish to proceed with this procedure. Preparation The patient was prepped in the usual manner. A freelance makeup artist was present and in the room. Genitalia was prepped with betadine solution in a sterile manner. Lidocaine Jelly 2% was placed into the urethra and 16Fr flexible Olympus cystoscope was inserted into the meatus after adequate lubrication. Procedure Time out per protocol performed. Bladder Inspection Bladder Inspection: The bladder was inspected in its entirety with utilization retroflexion displaying: Tumor(s): no suspicious bladder lesions visualized Trabeculation: Mild/ Moderate Mucosal Erthema: NA Orifices: normal shape and position Urethra: normal Cystoscopy findings: prostatic urethra bilobar enlargement, bulbous urethra WNL, no suspicious bladder lesions visualized [id number] DISPOSABLE SCOPE URO-G FLEXIBLE SCOPE Procedure code (CPT) selection complete Office Meds lidocaine HCl 2 % mucosal jelly in applicator Performing Provider: Mario Fountain MD Performing Location[facility] Administered by: Han Fung LPN on 03/24/24 13:57 Dose Route Admin Location Dispensed Lot Number Expiration Date NDC Coil Machine Supervisor 10 mL intra-urethral 10 mL naproxen 500 mg tablet Performing Provider: Mario Fountain MD Performing Location: [facility] Administered by: Han Fung LPN on 03/24/24 13:57 Dose Route Admin Location Dispensed Lot Number Expiration Date NDC Coil Machine Supervisor 500 mg PO 1 tab ciprofloxacin HCl 500 mg tablet Performing Provider: Mario Founatin MD Performing Location: [facility] Administered by: Han Fung LPN on 03/24/24 13:57 Dose Route Admin Location Dispensed Lot Number Expiration Date NDC Coil Machine Supervisor 500 mg PO 1 tab Results AMB Urinalysis, Automated UA Leukoctes 0 Alicia/uL Last Edit by TERRY Sequeira on 03/24/24 13:57 UA Nitrite Negative Last Edit by TERRY Sequeira on 03/24/24 13:57 UA Urobilinogen 0.2 mg/dL Last Edit by TERRY Sequeira on 03/24/24 13:57 UA Protein 0 mg/dL Last Edit by Alannah Rincon CCM on 03/24/24 13:57 UA pH 6.0 Last Edit by Alannah Rincon CCM on 03/24/24 13:57 UA Blood 0 Jeronimo/uL Last Edit by Alannah Rincon CCM on 03/24/24 13:57 UA Specific [place] 1.030 Last Edit by TERRY Sequeira on 03/24/24 13:57 UA Ketone Negative Last Edit by Alannah Rincon CCM on 03/24/24 13:57 UA Bilirubin 0 mg/dL Last Edit by Alannah Rincon [facility] on 03/24/24 13:57 UA Glucose 0 mg/dL Last Edit by Alannah Rincon [facility] on 03/24/24 13:57 Results Reviewed Results Reviewed: Laboratory Last Values Urine pH (Auto) 6.0 03/24/24 13:57 Specific [place] (Auto) 1.030 03/24/24 13:57 Urine Protein (Auto) 0 mg/dL 03/24/24 13:57 Glucose (UA)(Auto) 0 mg/dL 03/24/24 13:57 Urine Ketones (Auto) Negative 03/24/24 13:57 Urine Blood (Auto) 0 Jeronimo/uL 03/24/24 13:57 Urine Nitrite (Auto) Negative 03/24/24 13:57 Urine Bilirubin (Auto) 0 mg/dL 03/24/24 13:57 Urine Urobilinogen (Auto) 0.2 mg/dL 03/24/24 13:57 Leukocyte Esterase (Auto) 0 Alicia/uL 03/24/24 13:57 Assessment & Plan Assessment & Plan (1) Screening PSA (prostate specific antigen): Code(s): Z12.5 - Encounter for screening for malignant neoplasm of prostate Category: Medical (2) UTI (urinary tract infection): Code(s): N39.0 - Urinary tract infection, site not specified Category: Medical (3) Hematuria: Code(s): R31.9 - Hematuria, unspecified Category: Medical (4) Urinary frequency: Code(s): R35.0 - Frequency of micturition Category: Medical (5) BPH loc w urin obs/LUTS: Code(s): N40.1 - Benign prostatic hyperplasia with lower urinary tract symptoms Category: Medical Plan Alfuzosin 10 mg daily. Follow-up in 2 months Orders: Orders AMB Urinalysis Automated 03/24/24 Z13.9 - Encounter for screening, unspecified AMB Cystoscopy 03/24/24 R35.0 - Frequency of micturition, R31.9 - Hematuria, unspecified, N39.0 - Urinary tract infection, site not specified Medications: New alfuzosin ER take in the evening administer after the same meal each day 10 mg PO QPM 30 tabs 3RF Patient Instructions: The patient had an opportunity to ask questions regarding treatment plan. The patient expressed understanding and agreement with the above treatment plan. The patient is aware they should contact our office by phone for worsening of their current condition or the appearance of new symptoms. Compliance is encouraged with any medications and followup testing that is ordered. It is a privilege to be allowed the opportunity to participate in the urologic care of your patient. If you have any questions or concerns regarding treatment for the above conditions please do not hesitate to contact me. The office telephone contact is [phone]. This note is constructed in part using voice recognition software. While every effort has been made to ensure accuracy sound engineering technician errors may have been included. Yours sincerely, Mario Fountain MD Coding Level of Care Code Est Pt Level 4 (87617) Diagnoses Screening PSA (prostate specific antigen) Z12.5 UTI (urinary tract infection) N39.0 Hematuria R31.9 Urinary frequency R35.0 BPH loc w urin obs/LUTS N40.1 CPT Codes Cystoscopy - CPT: 07652-[id number] ([id number])
== END 2024-03-24 15:01 | disposition home or self-care (01) ==
PROVIDERS: PCP Internal Medicine; Visit Provider Urology
DX: R35.0 Frequency of micturition (principal); R31.9 Hematuria, unspecified; N39.0 Urinary tract infection, site not specified
CPT/HCPCS: 52000

== ENCOUNTER → 2024-03-24 13:29 | Outpatient (BNVA) | payer OTHER, SELFPAY | PROVIDERS: PCP Internal Medicine; Visit Provider Urology | DX: R31.9 Hematuria, unspecified (principal); N40.1 Benign prostatic hyperplasia with lower urinary tract symptoms; N13.8 Other obstructive and reflux uropathy; R35.0 Frequency of micturition; N39.0 Urinary tract infection, site not specified | CPT/HCPCS: 52000; 81003 ==

== ENCOUNTER 2024-05-21 11:22 | Outpatient (AMB) | payer OTHER, SELFPAY ==
--- NOTE | 2024-05-21 11:53 | HO.NEPHOV_ITS ---
Vital Signs 05/21/24 11:54 Height 6 ft Weight 330 lb 4 oz BMI 44.8 BP 120/60 Blood Pressure Location Rt brachial Position Sitting Pulse 75 Pulse Source Pulse Oximeter Pulse Oximetry (%) 97 Oxygen Delivery Method Room Air Intake Visit Reasons: Uncontrolled HTN-Conf Qualitative Field Coordinator Required: No Accompanied by: Self / Same As Patient Allergies No Known Allergies Allergy (Verified 05/21/24 11:53) HPI Comments Details: Charles in follow up for labile hypertension. He has neurological issues for which he has been seen in [facility], Division of Neurology. He underwent tilt table testing which was negative. He had skin biopsy which was positive for decreased epidermal nerve fiber density. He also had EMG and nerve conduction studies which showed mild degree of fibrillation potentials in the right tibialis anterior and medial gastrocnemius and chronic denervation in right peroneal muscle. He also has a mild L5-S1 radiculopathy, right ulnar neuropathy, mild cervical radiculopathy at C6. He also feels he has light memory loss and occasionally drops things from his right hand. He gets lightheadedness intermittently. He has H/O syncope. He is known to have hypertension as well as sleep apnea. He is on CPAP. He has high BMI. He had extensive cardiac and neurological workup. He has been on amlodipine as well as carvedilol. He denies any chest pain, shortness of breath, proximal nocturnal dyspnea, orthopnea, worsening pedal edema or urinary symptoms. He claims to be compliant with his blood pressure medications. He has no history of any drug use. He denies any flushing, diarrhea, palpitation. There is no known documented history of any autonomic neuropathy. He is not known to have any cardiomyopathy. He has no family history of any renal or neurological issues. He has H/O hematuria with left flank pain. His BP is well controlled now . [facility] Medical History High cholesterol Chronic neurologic disease Sleep apnea Hypertension Surgical History History of testicular surgery Family History Father Diabetes Hypertension Mother Diabetes Hypertension Social History Alcohol intake: current Comment: Rare Patient Tobacco Use Status: Never used Tobacco Review of Systems Const All systems reviewed & are unremarkable except as noted in HPI and below Physical Exam Vital Signs: Last Vital Signs Pulse 75 05/21/24 11:54 BP 120/60 05/21/24 11:54 Pulse Ox 97 05/21/24 11:54 Oxygen Delivery Method Room Air 05/21/24 11:54 BMI result Body Mass Index 44.8 Const General: comfortable and no acute distress Orientation/consciousness: patient oriented x3 HEENT Head: Yes normocephalic Mouth: Normal oral and palatal mucosa present Eyes EOM: EOMs intact bilaterally Neck Neck: Yes supple Resp Auscultation: clear to auscultation bilaterally Cardio Jugular venous distension: no JVD Rate: regular rate GI Palpation (GI): Soft to palpation Auscultation: normal bowel sounds General: Yes no CVA tenderness Back/Spine/Pelvis Back: no CVA tenderness Skin General skin exam: no rashes or lesions noted Neuro General: patient oriented x3 and moves all extremities Extrem General: Yes no pedal edema Results Reviewed Nephrology Results: Sodium 141 mmol/L (135-145) 02/12/24 Potassium 4.0 mmol/L (3.3-5.1) 02/12/24 Chloride 107 mmol/L (96-108) 02/12/24 Carbon Dioxide 28 mmol/L (22-29) 02/12/24 BUN 16 mg/dL (9-16) 02/12/24 Creatinine 0.97 mg/dL (0.5-1.4) 02/12/24 Calcium 9.2 mg/dL (8.4-10.2) 02/12/24 Urine Protein Negative mg/dL (Neg-Trace) 03/21/24 Renal US 03/03/24 Assessment & Plan Assessment & Plan (1) Renal calculus: Code(s): N20.0 - Calculus of kidney Category: Medical (2) Hypertension: Code(s): I10 - Essential (primary) hypertension Category: Medical Qualifiers: Hypertension type: primary hypertension Qualified Code(s): I10 - Essential (primary) hypertension Plan Charles has longstanding hypertension and is currently on 2 antihypertensive medications. He is not known to have any hypokalemia, hypercalcemia, uncontrolled thyroid disorders. He has obstructive sleep apnea and is compliant with CPAP. His renal functions had been at baseline .He is not known to have any proteinuria. I asked him to continue on his current medications for now. He has no diagnosis of POTS syndrome or any autonomic neuropathy. He has chronic neurological issues. Her follow up renal USS was OK. I plan to start him on chlorthalidone and or K citrate, if he continues to have stones. Answered all questions and follow-up appointment given Orders: Orders Electrolytes 8 Months I10 - Essential (primary) hypertension, N20.0 - Calculus of kidney Protein Creatinine Ratio, Ur 8 Months I10 - Essential (primary) hypertension, N20.0 - Calculus of kidney Creatinine 8 Months I10 - Essential (primary) hypertension, N20.0 - Calculus of kidney Blood Urea Nitrogen 8 Months I10 - Essential (primary) hypertension, N20.0 - Calculus of kidney Calcium 8 Months I10 - Essential (primary) hypertension, N20.0 - Calculus of kidney Coding Level of Care Code Est Pt Level 4 (53397) Diagnoses Renal calculus N20.0 Primary hypertension I10 Hypertension type: primary hypertension
[2024-05-21 11:54] VITALS: BP 120/60; PULSE 75; O2SAT 97; BMI 44.8
== END 2024-05-21 12:12 | disposition home or self-care (01) ==
PROVIDERS: PCP Internal Medicine; Visit Provider Internal Medicine Nephrology
DX: N20.0 Calculus of kidney (principal); I10 Essential (primary) hypertension
CPT/HCPCS: 99214

== ENCOUNTER 2024-08-28 09:43 | Outpatient (REF) | payer OTHER, SELFPAY ==
--- OUTSIDE RECORDS SUMMARY | 2024-08-28 10:34 | XMS_ITS | Encounter Summary ---
Author Organization [facility] Address [address] [place] [address] Care Team Providers Care Ibm Websphere Commerce Developer Name Role Phone Glory Delgadillo Primary Care Provider [phone] Encounter Details Date Type Department Care Team (Late st Contact Info) Description 07/21/2024 myChart Message [facility] Neurology [address] [place] [address] Chai Pacheco MD [address] [place] [phone] EEG Social History Tobacco Use Types Packs/Day Years Used Date Smoking Tobacco: Never Assessed Sex and Gender Information Value Date Recorded Sex Assigned at Male 08/18/2022 10:14 AM EST Legal Sex Male 10:11 AM EST Gender Identity Male 08/18/2022 10:14 AM EST Sexual Orientation Straight 11/08/2022 11 :25 PM EDT documented as of this encounter Plan of Treatment Upcoming Encounters Date Type Department Care Team (Late st Contact Info) Description 01/30/2025 11:00 AM EDT Follow-Up [facility] Neurology [address] [place] [address] Chai Pacheco MD [address] [place] [phone] documented as of this encounter Visit Diagnoses Not on filedocumented in this encounter Care Teams Ibm Websphere Commerce Developer Relationship Specialty Start Date End Date Glory Delgadillo [address] [address] PCP - General Internal Medicine 08/15/23 documented as of this encounter
--- OUTSIDE RECORDS SUMMARY | 2024-08-28 10:34 | XMS_ITS | Patient Health Record ---
Author Organization [facility] Address [address] [place], [place] [id number] Care Team Providers Care Java Solutions Architect Name Role Phone Glory Ureña Primary Care Provider Unavailab Skinny Nuñez Unavailable [phone] Chai Zimmerman Unavailable Unavailable Ronald Mckeon Unavailable [phone] Allergies Allergen (clinical drug ingredient) Drug/Non Drug Allergy documented on EMR Reaction Allergy Type Onset Date Status Bee Sting anaphylaxis Allergy Active Reason For Referral No Information Medications Medication SIG (Take, Route, Frequency, Duration) Notes Start Date End Date Status Aspirin Low Dose 81 MG Oral for 90 Days Not-Taking Atorvastatin Calcium 20 MG TAKE 1 TABLET BY MOUTH EVERY DAY Oral for 90 Days Active amLODIPine Besylate 10 MG Oral for 90 Days Active Carvedilol 12.5 MG TAKE 1 TABLET BY [place] TH TWICE A DAY Oral for 90 Days Active Problems Problem Type SNOMED Code ICD Code Onset Dates Problem Status W/U Status Risk Notes Problem 919874077 Morbid obesity (E66.01) Active confirmed Problem 96390390 Chronic fatigue (R53.82) Active confirmed Problem 08219053 HTN (hypertension) , benign (I10) Active confirmed Problem 94405891 BAMBI (obstructive sleep apnea) (G47.33) Active confirmed Vital Signs Heart Rate 65 /min 12/28/2023 Respiratory Rate 16 /min 12/28/2023 Blood pressure diastolic 70 mm Hg 12/28/2023 Height 73 in 12/28/2023 Blood pressure systolic 120 mm Hg 12/28/2023 Weight 328 lbs 12/28/2023 BMI 43.27 kg/m2 12/28/2023 Encounters Encounter Location Date Provider Diagnosis [facility] [address] [place] [address] 12/28/2023 Skinny Mick BAMBI (obstructive sleep apnea) G47.33 ; Chronic fatigue R53.82 ; Morbid obesity E66.01 ; HTN (hypertension), benign I10 and Syncope, unspecified syncope type R55 [facility] [address] [facility] [address] [place], [place] [phone] 03/17/2024 Skinny Mick [facility] [address] [facility] [address] [place], [place] [id number] 08/30/2023 Ronald Aghassi [facility] [address] [place], [place] [phone] 09/04/2023 Skinny Mick [facility] [address] [place] [address] 11/01/2023 Skinny Mick [facility] [address] [place], [place] [id number] 03/11/2024 Skinny Mick [facility] [address] [place] [address] 12/26/2023 Glory Ureña Assessments Encounter Date Diagnosis (ICD Code) Assessment Notes Treatment Notes Treatment Clinical Notes Section Notes 12/28/2023 Chronic fatigue (ICD-10 - R53.82) as above 12/28/2023 BAMBI (obstructive sleep apnea) (ICD-10 - G47.33) he has history of very severe sleep apnea; has been using auto CPAP 10-16 cm H20 with nasal mask for the last 2 years and tolerating very well. He continues to have significant daytime fatigue; there is a high concern from neurology that undertreated sleep apnea is contributing to his syncopal events. Review of his CPAP compliance data does show good control of BAMBI; but with his continuing daytime fatigue will do an in lab CPAP titration study. He might need to start on a stimulant like modafinil with significant daytime fatigue 12/28/2023 Morbid obesity (ICD-10 - E66.01) discussed exercise and dietary discretion 12/28/2023 HTN (hypertension), benign (ICD-10 - I10) on carvedilol and amlodipine 12/28/2023 Syncope, unspecified syncope type (ICD-10 - R55) continue follow-up with [facility] neurology;it is unlikely that his syncopal episodes represent sleep attacks Plan Of Treatment Pending Test Test Name Order Date SLEEP STUDY CPAP/BiPAP TITRATION 024 Insurance Providers Payer Name Payer Address Payer Phone Subscriber Number Group Number Insured Name Patient Relationship to Insured Coverage Start Date Coverage End Date [employer], [facility] [address] [place] [phone] [id number] Charles Morris Self - patient is the insured Medical (General) History Medical History History ICD Code BAMBI HTN hyperlipidemia empty sella Arthritis Morbid obesity Surgical History Surgery Date(Month/Year) tonsillectomy Reduction of testicular torsion
--- OUTSIDE RECORDS SUMMARY | 2024-08-28 10:34 | XMS_ITS | Encounter Summary ---
Author Organization [facility] Address [address] [place] [address] Care Team Providers Care Industry Analyst Name Role Phone Glory Delgadillo Primary Care Provider [phone] Encounter Details Date Type Department Care Team (Late st Contact Info) Description 08/06/2024 myChart Message [facility] Neurology [address] [place] [address] Chai Pacheco MD [address] [place] [phone] Headache Social History Tobacco Use Types Packs/Day Years [...] Info) Description 01/30/2025 11:00 AM EDT Follow-Up [facility] Neurology [address] [place] [address] Chai Pacheco MD [address] [place] [address] documented as of this encounter Visit Diagnoses Not on filedocumented in this encounter Care Teams Industry Analyst Relationship Specialty Start Date End Date Glory Delgadillo [address] [address] PCP - General Internal Medicine 08/15/23 documented as of this encounter
--- OUTSIDE RECORDS SUMMARY | 2024-08-28 10:34 | XMS_ITS ---
Author Organization [facility] Address [address] [place], [place] [phone] Care Team Providers Care Senior Vice President & General Counsel Name Role Phone Glory Ureña Primary Care Provider Unavailab Skinny Nuñez Unavailable [phone] Chai Zimmerman Unavailable Unavailable REASON FOR VISIT Reschedule Encounters Encounter Location Date Provider Diagnosis [facility] [address] [place], [place] [phone] 03/11/2024 Skinny Barton Plan Of Treatment No Information Progress Notes * Charles MORRISDOB: [birth year] (48 yo M)Acc No.[id number]:03/11/2024 Patient:?Charles MORRIS :1975???Age:48 Y???Sex:Male Address:[address] [place] [address] * true * Date:? Generated for Lluvia muller/Arnoldo/eTransmitting on:?08/28/2024 10:34 AM EST
--- OUTSIDE RECORDS SUMMARY | 2024-08-28 10:34 | XMS_ITS | Encounter Summary ---
Author Organization [facility] Address [address] [place] [address] Care Team Providers Care Mine Surveyor Name Role Phone Glory Delgadillo Primary Care Provider [phone] Encounter Details Date Type Department Care Team (Late st Contact Info) Description 11/28/2022 Telephone [facility] [address] [place] [address] Telephone Intake, Staff Social History Tobacco Use Types Packs/Day Years Used Date Smoking Tobacco: Never Assessed Sex and Gender Information Value Date Recorded Sex Assigned at Male 08/18/2022 10:14 AM EST Legal Sex Male 10:11 AM EST Gender Identity Male 08/18/2022 10:14 AM EST Sexual Orientation Straight 11/08/2022 11 :25 PM EDT documented as of this encounter Miscellaneous Notes * Telephone Encounter - Romi May - 11/28/2022 1:52 PM EDT Patient has referral in to be seen by Pediatric infectious disease and referral should be sent to adult ID documented in this encounter Plan of Treatment Upcoming Encounters Date Type Department Care Team (Late st Contact Info) Description 01/30/2025 11:00 AM EDT Follow-Up [facility] Neurology [address] [place] [address] Chai Pacheco MD [address] [place] [address] documented as of this encounter Visit Diagnoses Not on filedocumented in this encounter Care Teams Mine Surveyor Relationship Specialty Start Date End Date Glory Delgadillo [address] [place] [address] PCP - General Internal Medicine 08/15/23 documented as of this encounter
--- OUTSIDE RECORDS SUMMARY | 2024-08-28 10:34 | XMS_ITS | Encounter Summary ---
Author Organization [facility] Address [address] [place] [address] Care Team Providers Care System Software Developer Name Role Phone Glory Delgadillo Primary Care Provider Encounter Details Date Type Department Care Team (Late st Contact Info) Description 10/26/2022 Orders Only [facility] [address] [place] [address] Provider, MD Maulik [address] [place] [address] Social History Tobacco Use Types Packs/Day Years [...] Info) Description 01/30/2025 11:00 AM EDT Follow-Up [facility] Neurology [address] [place] [address] Chai Pacheco MD [address] [place] [address] documented as of this encounter Procedures * Due to [place] [employer] law, this organization might not be sharing negative HIV tests. Procedure Name Priority Date/Time Associated Diagnosis Comments NEURODIAGNOSTIC - SCANNED Routine 10/26/2022 documented in this encounter Results * Due to [place] state law, this organization might not be sharing negative HIV tests. * NEURODIAGNOSTIC - SCANNED (10/26/2022) us Unknown Provider SCANNED PROCEDURES Final Res ult documented in this encounter Visit Diagnoses Not on filedocumented in this encounter Care Teams System Software Developer Relationship Specialty Start Date End Date Elie Glory [address] [facility] [address] [place] [address] PCP - General Internal Medicine 08/15/23 documented as of this encounter
--- OUTSIDE RECORDS SUMMARY | 2024-08-28 10:34 | XMS_ITS | Clinical Summary ---
Author Organization [facility] Address [address] [place] [address] Care Team Providers Care Card Runner Name Role Phone Kevon Ramirez DO Primary Care Provider Surgical History Surgery Date Site/Laterality Comments COLONOSCOPY 07/27/2017 PROCEDURE: HISTORICAL COLONOSCOPY; COMMENT: abnormal OTHER SURGICAL HISTORY PROCEDURE: HISTORY OTHER; COMMENT: History of Surgery Testis Reduction Of Torsion Of Testis Bilateral Medical History Medical History Date Comments Empty sella (CMS/HCC) DX:Empty s kay (HCC) Family history of cardiomyopathy DX:Family history of cardiomyopathy Family History Medical History Relation Name Comments Other: Cardiovascular disease Brother Diabetes Father Hypertension Father Other: Hyperlipidemia Father Diabetes Mother Relation Name Status Comments Brother Father Mother Social History Tobacco Use Types Packs/Day Years Used Date Smoking Tobacco: Never Smokeless Tobacco: Never Alcohol Use Standard Drinks/Week Comments Yes 1 (1 standard drink = 0.6 oz pur e alcohol) Sex and Gender Information Value Date Recorded Sex Assigned at Not on file Legal Sex Male 4:57 PM EST Gender Identity Not on file Sexual Orientation Not on file Obstetrics History Plan of Treatment Health Maintenance Due Date Last Done Comments DTaP,Tdap,and Td Vaccines (1 - Tdap) 1994 Hepatitis B Vaccines (1 of 3 - 19+ 3-dose series) 1994 Cholesterol Screening (Lipid Panel) 06/07/2022 Colorectal Cancer Screening: Colonoscopy 06/07/2022 Depression Screening 06/07/2022 HIV Screening 06/07/2022 Hepatitis C Screening 06/07/2022 Social Influencers of Health Screening 06/07/2022 Hypertension/CHF/CAD Annual BMP Blood Test 06/24/2022 COVID-19 Vaccine ( - 2023-2 5 season) 2024 Influenza Vaccine (#1) 2024 HIB Vaccines Aged Out No longer eligi ble based on patient's age to complete this topic HPV Vaccines Aged Out No longer eligi ble based on patient's age to complete this topic Hepatitis A Vaccines Aged Out No long er eligible based on patient's age to complete this topic IPV Vaccines Aged Out No longer eligi ble based on patient's age to complete this topic MMR Vaccines Aged Out No longer eligi ble based on patient's age to complete this topic Meningococcal ACWY Vaccine Aged Out N o longer eligible based on patient's age to complete this topic Meningococcal B Vacine Aged Out No lo nger eligible based on patient's age to complete this topic Pneumococcal Vaccine: Pediat rics (0 to 5 Years) and At-Risk Patients (6 to 64 Years) Aged Out No longer eligible b ased on patient's age to complete this topic RSV Immunization Patients Un adria 20 months Aged Out No longer eligible b ased on patient's age to complete this topic Varicella Vaccines Aged Out No longer eligible based on patient's age to complete this topic Care Teams Card Runner Relationship Specialty Start Date End Date Kevon Ramirez DO [address] [place] [address] PCP - General 04/27/17
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
--- OUTSIDE RECORDS SUMMARY | 2024-08-28 10:34 | XMS_ITS ---
Author Organization [facility] Address [address] [facility] [address] [place], [place] [address] Care Team Providers Care School Laboratory Technician Name Role Phone Glory Ureña Primary Care Provider Unavailab Skinny Nuñez Unavailable [phone] Chai Zimmerman Unavailable Unavailable REASON FOR VISIT in lab sleep study Encounters Encounter Location Date Provider Diagnosis [facility] [address] [place], [place] [address] 03/17/2024 Skinny Barton Plan Of Treatment No Information Progress Notes * Charles MORRISDOB: 6 (49 yo M)Acc No.[id number]:03/17/2024 Patient:?Charles MORRIS :1975???Age:48 Y???Sex:Male Address:[address] [place] [address] * * Date:?
--- OUTSIDE RECORDS SUMMARY | 2024-08-28 10:34 | XMS_ITS ---
Author Organization [facility] Address [address] [place], [place] [id number] Care Team Providers Care Tube Mounter Name Role Phone Glory Ureña Primary Care Provider Unavailab Skinny Nuñez Unavailable [phone] Fish DylonChai Unavailable Unavailable REASON FOR VISIT 3 month Titration Study follow up Encounters Encounter Location Date Provider Diagnosis [facility] [address] [place] [address] 03/19/2024 Skinny Barton Plan Of Treatment No Information Progress Notes * Charles MORRISDOB: 6 (49 yo M)Acc No.[id number]:03/19/2024 Patient:?Charles MORRIS Provider:Sharyn Barton MD :1975???Age:48 Y???Sex:Male Nicholas e:03/19/2024 [place]: [place] Pcp:Glory Ureña Subjective: * Chief Complaints: * ???1. 3 month Titration Stud y follow up. * Medical History:? Objective: * Vitals:? Assessment: Plan: * Treatment: * Images: * Electronic signature of Kwadwo Barton on 08/28/2024 at 10:34 AM EST Sign off status: Pending * Provider:Sharyn Barton MD Date:?03/19 Generated for Yinai ng/Facandig/eTransmitting on:?08/28/2024 10:34 AM EST
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
== END 2024-08-28 09:44 | disposition home or self-care (01) ==
LOC: HO.LAB 09:43
PROVIDERS: PCP Internal Medicine; Visit Provider Internal Medicine
DX: Z13.89 Encounter for screening for other disorder (principal)

== ENCOUNTER 2024-09-03 07:43 | Outpatient (REF) | payer OTHER, SELFPAY ==
--- OUTSIDE RECORDS SUMMARY | 2024-09-03 07:49 | XMS_ITS ---
Author Organization [facility] Address [address] [facility] [address] [place], [place] [id number] Care Team Providers Care Manager Presentation Name Role Phone Glory Ureña Primary Care Provider Unavailab Skinny Nuñez Unavailable [phone] hCai Zimmerman Unavailable Unavailable REASON FOR VISIT in lab sleep study Encounters Encounter Location Date Provider Diagnosis [facility] [address] [facility] [address] [place], [place] [phone] 03/17/2024 Skinny Barton Plan Of Treatment No Information Progress Notes * Charles MORRISDOB: 6 (49 yo M)Acc No.[id number]:03/17/2024 Patient:?Charles MORRIS :1975???Age:48 Y???Sex:Male Address:[address] [place] [address] * * Date:?
--- OUTSIDE RECORDS SUMMARY | 2024-09-03 07:49 | XMS_ITS | Clinical Summary ---
Author Organization [facility] Address [address] [place] [address] Care Team Providers Care Roof Promenade Tile Setter Name Role Phone Kevon Ramirez DO Primary Care Provider [phone] Surgical History Surgery Date Site/Laterality Comments COLONOSCOPY [...] age to complete this topic Care Teams Roof Promenade Tile Setter Relationship Specialty Start Date End Date Kevon Ramirez DO [address] [place] [address] PCP - General 04/27/17
--- OUTSIDE RECORDS SUMMARY | 2024-09-03 07:49 | XMS_ITS | Patient Health Record ---
Author Organization [facility] Address [address] [place], [place] [phone] Care Team Providers Care Steam And Gas Turbines Assembler Name Role Phone Glory Ureña Primary Care Provider Unavailab Skinny Nuñez Unavailable [phone] Chai Zimmerman Unavailable Unavailable Allergies Allergen (clinical drug ingredient) Drug/Non Drug [...] Problem Status W/U Status Risk Notes Problem 698233797 Morbid obesity (E66.01) Active confirmed Problem 68298038 Chronic fatigue (R53.82) Active confirmed Problem 68641709 HTN (hypertension) , benign (I10) Active confirmed Problem 58176593 BAMBI (obstructive sleep apnea) (G47.33) Active confirmed Vital Signs Heart Rate 65 /min 12/28/2023 Respiratory Rate 16 /min 12/28/2023 Blood pressure diastolic 70 mm Hg 12/28/2023 Height 73 in 12/28/2023 Blood pressure systolic 120 mm Hg 12/28/2023 Weight 328 lbs 12/28/2023 BMI 43.27 kg/m2 12/28/2023 Encounters Encounter Location Date Provider Diagnosis [facility] [address] [place] [address] 12/28/2023 Skinny Mick BAMBI (obstructive sleep apnea) G47.33 ; Chronic fatigue R53.82 ; Morbid obesity E66.01 ; HTN (hypertension), benign I10 and Syncope, unspecified syncope type R55 [facility] [address] [facility] [address] [place], [place] [phone] 03/17/2024 Skinny Mick [facility] [address] [place], [place] [phone] 09/04/2023 Skinny Mick [facility] [address] [place] [address] 11/01/2023 Skinny Mick [facility] - [address] [place], [place] [phone] 03/11/2024 Skinny Mick [facility] [address] [place] [address] 12/26/2023 Glory Ureña Assessments Encounter Date Diagnosis [...] type (ICD-10 - R55) continue follow-up with [facility] neurology;it is unlikely that his syncopal episodes represent sleep attacks Plan Of Treatment Pending Test Test Name Order Date SLEEP STUDY CPAP/BiPAP TITRATION 024 Insurance Providers Payer Name Payer Address Payer Phone Subscriber Number Group Number Insured Name Patient Relationship to Insured Coverage Start Date Coverage End Date [facility], [facility] [address] [place] [address] [id number] Charles Morris Self - patient is the insured Medical (General) History Medical History History ICD Code BAMBI HTN hyperlipidemia empty sella Arthritis Morbid obesity Surgical History Surgery Date(Month/Year) tonsillectomy Reduction of testicular torsion
--- OUTSIDE RECORDS SUMMARY | 2024-09-03 07:49 | XMS_ITS | Encounter Summary ---
Author Organization [facility] Address [address] [place] [address] Care Team Providers Care Billing Manager Name Role Phone Glory Delgadillo Primary Care Provider [phone] Encounter Details Date Type Department Care Team (Late st Contact Info) Description 07/21/2024 myChart Message [facility] Neurology [address] [place] [address] Chai Pacheco MD [address] [place] [address] EEG Social History Tobacco Use Types Packs/Day [...] Info) Description 01/30/2025 11:00 AM EDT Follow-Up [facility] Neurology [address] [place] [address] Chai Pacheco MD [address] [place] [address] documented as of this encounter Visit Diagnoses Not on filedocumented in this encounter Care Teams Billing Manager Relationship Specialty Start Date End Date Glory Delgadillo [address] [address] PCP - General Internal Medicine 08/15/23 documented as of this encounter
--- OUTSIDE RECORDS SUMMARY | 2024-09-03 07:49 | XMS_ITS | Encounter Summary ---
Author Organization [facility] Address [address] [place] [address] Care Team Providers Care Bridal Service Sales And Management Name Role Phone Glory Delgadillo Primary Care Provider [phone] Encounter Details Date Type Department Care Team (Late st Contact Info) Description 10/26/2022 Orders Only [facility] [address] [place] [address] Provider, MD [place] [address] [place] [address] Social History Tobacco Use Types Packs/Day [...] Info) Description 01/30/2025 11:00 AM EDT Follow-Up [facility]rology [address] [place] [address] Chai Pacheco MD [address] [place] [address] documented as of this encounter Procedures * Due to [place] [employer] law, this organization might not be sharing negative HIV tests. Procedure Name Priority Date/Time Associated Diagnosis Comments NEURODIAGNOSTIC - SCANNED Routine 10/26/2022 documented in this encounter Results * Due to [place] state law, this organization might not be sharing negative HIV tests. * NEURODIAGNOSTIC - SCANNED (10/26/2022) us Unknown Provider SCANNED PROCEDURES Final Res ult documented in this encounter Visit Diagnoses Not on filedocumented in this encounter Care Teams Bridal Service Sales And Management Relationship Specialty Start Date End Date Elie Glory [address] [facility] [address] [place] [address] PCP - General Internal Medicine 08/15/23 documented as of this encounter
--- OUTSIDE RECORDS SUMMARY | 2024-09-03 07:49 | XMS_ITS | Encounter Summary ---
Author Organization [facility] Address [address] [place] [address] Care Team Providers Care Cutting Machine Tender Helper Name Role Phone Glory Delgadillo Primary Care Provider [phone] Encounter Details Date Type Department Care Team (Late st Contact Info) Description 11/28/2022 Telephone [facility] [address] [place] [address] Telephone Intake, Staff Social History Tobacco Use [...] Info) Description 01/30/2025 11:00 AM EDT Follow-Up [facility] Neurology [address] [place] [address] Chai Pacheco MD [address] [place] [address] documented as of this encounter Visit Diagnoses Not on filedocumented in this encounter Care Teams Cutting Machine Tender Helper Relationship Specialty Start Date End Date Glory Delgadillo [address] [place] [address] PCP - General Internal Medicine 08/15/23 documented as of this encounter
--- OUTSIDE RECORDS SUMMARY | 2024-09-03 07:49 | XMS_ITS | Encounter Summary ---
Author Organization [facility] Address [address] [place] [address] Care Team Providers Care Speech And Drama Teacher Name Role Phone Glory Delgadillo Primary Care Provider [phone] Encounter Details Date Type Department Care Team (Late st Contact Info) Description 08/06/2024 myChart Message [facility] Neurology [address] [place] [address] Chai Pacheco MD [address] [place] [address] Headache Social History Tobacco Use Types Packs/Day [...] Info) Description 01/30/2025 11:00 AM EDT Follow-Up [facility] Neurology [address] [place] [address] Chai Pacheco MD [address] [place] [address] documented as of this encounter Visit Diagnoses Not on filedocumented in this encounter Care Teams Speech And Drama Teacher Relationship Specialty Start Date End Date Glory Delgadillo [address] [address] PCP - General Internal Medicine 08/15/23 documented as of this encounter
--- OUTSIDE RECORDS SUMMARY | 2024-09-03 07:49 | XMS_ITS | Referral Summary ---
Author Organization [facility] Address [address] [place] [address] Care Team Providers Care Municipal Clerk Name Role Phone Glory Delgadillo Primary Care Provider [phone] Encounters Date Type Department Care Team Description 08/06/2024 Weight Wins Message [facility] Neurology [address] [place] [address] Chai Pacheco MD Headache 07/25/2024 8:30 AM EST Follow-Up [facility] Neurology [address] [place] [address] 505[address] Chai Pacheco MD Syncope, unspecified syncope type (Primary Dx); Autonomic dysfunction; BAMBI on CPAP; RBD (REM behavioral disorder); Seizure-like activity (HCC); Anxiety and depression 07/21/2024 Weight Wins Message [facility] Neurology [address] [place] [address] 424[address] Chai Pacheco MD EEG 06/04/2024 Weight Wins Message [facility] Neurology [address] [place] [address] Chai Pacheco MD No test results from [...] history of epilepsy 11/09/2022 Family history of Bsscx-Qkptopypn-Ytcqp (WPW) sy ndrome 11/09/2022 Peripheral polyneuropathy 11/09/2022 [...] Info) Description 01/30/2025 11:00 AM EDT Follow-Up [facility] Neurology [address] [place] [address] Chai Pacheco MD [address] [place] [address] Procedures * Due to [facility] law, this organization might not be sharing negative HIV tests. Procedure Name Priority Date/Time Associated Diagnosis Comments COMPREHENSIVE METABOLIC PANEL Routine 12/29/2022 10:18 AM EDT Peripheral polyneuropathy from Last 3 Months or Most Recently Relevant to Health Maintenance Results * Due to [place] [employer] law, this organization might not be sharing negative HIV tests. * Comprehensive Metabolic Panel (12/29/2022 10:18 AM EDT) Glucose 93 65 - 99 mg/dL 12/29/2022 9:14 PM EDT [facility] Comment: ? Fasting reference interval BUN 15 7 - 25 mg/dL 12/29/2022 9:14 PM [employer] Creatinine 0.88 0.60 - 1.29 mg/dL 12/29/2022 9:14 PM [employer] eGFR 107 > OR = 60 mL/min/1 .73m2 12/29/2022 9:14 PM [employer] Comment: The eGFR is based on the CKD-EPI 2020 equation. To calculate the new eGFR from a previous Creatinine or Cystatin C result, go to https://www.kidney.org/professionals/ kdoqi/gfr%5Fcalculator Bun/Creatinine Ratio NOT APPLICABLE (calc) 12/29/2022 9:14 PM [employer] Sodium 140 135 - 146 mmol/L 12/29/2022 9:14 PM [employer] Potassium 4.4 3.5 - 5.3 mmol/L 12/29/2022 9:14 PM [employer] Chloride 107 98 - 110 mmol/L 12/29/2022 9:14 PM EDT [facility] Carbon Dioxide 25 20 - 32 mmol/L 12/29/2022 9:14 PM EDT [facility] Calcium 8.8 8.6 - 10.3 mg/dL 12/29/2022 9:14 PM EDT [facility] Protein, Total 6.7 6.1 - 8.1 g/dL 12/29/2022 9:14 PM EDT [facility] Albumin 4.0 3.6 - 5.1 g/dL 12/29/2022 9:14 PM EDT [facility] Globulin 2.7 1.9 - 3.7 g/dL (calc) 12/29/2022 9:14 PM EDT [facility] Albumin/Globul in Ratio 1.5 1.0 - 2.5 (calc) 12/29/2022 9:14 PM EDT [facility] Bilirubin, Total 0.6 0.2 - 1.2 mg/dL 12/29/2022 9:14 PM EDT [facility] Alkaline Phosphatase 88 36 - 130 U/L 12/29/2022 9:14 PM EDT [facility] AST 22 10 - 40 U/L 12/29/2022 9:14 PM EDT [facility] ALT 43 9 - 46 U/L 12/29/2022 9:14 PM EDT [facility] Blood Structure of peripheral vein / Unknown 12/29/2022 10:18 AM EDT 12/29/2022 5:58 PM EDT Narrative [facility] - 01/01/2023 5:34 PM EDT FASTING:YES us Chai Pacheco MD LAB BLOOD ORDERABLES Fi nal Result [facility] [address] [facility] 3rd Floor, [place] [address], [email or web address] [facility] [address] [place] [address] from Last 3 Months or Most Recently Relevant to Health Maintenance Insurance [facility] MEDICAID on file Advance Directives Documents on File Type Date Recorded Patient Cleaner Touch Up Worker Expl anation Power of Campaign Management Specialist 02/13/2023 2:38 PM REF IN S OUT OF NETWORK DR BRITO 01/22/2023 1 VISIT Care Teams Municipal Clerk Relationship Specialty Start Date End Date Glory Delgadillo [address] [facility] [address] [place] [address] PCP - General Internal Medicine 08/15/23
--- OUTSIDE RECORDS SUMMARY | 2024-09-03 07:49 | XMS_ITS ---
Author Organization [facility] Address [address] [place], [place] [address] Care Team Providers Care Fisherman Helper Name Role Phone Glory Ureña Primary Care Provider Unavailab Skinny Nuñez Unavailable [phone] Fish DylonChai Unavailable Unavailable REASON FOR VISIT 3 month Titration Study follow up Encounters Encounter Location Date Provider Diagnosis [facility] [address] [place] [address] 03/19/2024 Skinny Barton Plan Of Treatment No Information Progress Notes * Charles MORRISDOB: 6 (49 yo M)Acc No.[id number]:03/19/2024 Patient:?Charles MORRIS Provider:Sharyn Barton MD :1975???Age:48 Y???Sex:Male Nicholas e:03/19/2024 [place] Pcp:Glory Ureña Subjective: * Chief Complaints: * ???1. 3 month Titration Stud y follow up. * Medical History:? Objective: * Vitals:? Assessment: Plan: * Treatment: * Images: * Electronic signature of Kwadwo Barton on 09/03/2024 at 07:49 AM EST Sign off status: Pending * Provider:Sharyn Barton MD Date:?03/19 Generated for Yinai ng/Fageorgiana/eTransmitting on:?09/03/2024 07:49 AM EST
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
--- OUTSIDE RECORDS SUMMARY | 2024-09-03 07:50 | XMS_ITS ---
Author Organization [facility] Address [address] [place], [place] [address] Care Team Providers Care Tumbler Operator Name Role Phone Glory Ureña Primary Care Provider Unavailab Skinny Nuñez Unavailable [phone] Chai Zimmerman Unavailable Unavailable REASON FOR VISIT Reschedule Encounters Encounter Location Date Provider Diagnosis [facility] [address] [place], [place] [phone] 03/11/2024 Skinny Barton Plan Of Treatment No Information Progress Notes * Charles MORRISDOB: 6 (48 yo M)Acc No.[id number]:03/11/2024 Patient:?MORRISCharles :1975???Age:48 Y???Sex:Male Address:[address] [place] [address] * true * Date:? Generated for Lluvia muller/Arnoldo/eTransmitting on:?09/03/2024 07:49 AM EST
[2024-09-03 08:20] LABS: Estimated Average Glucose 114 mg/dL; Hemoglobin A1C 149.3893 umol/L; Hemoglobin A1c % 5.6 % (<6.0); Total Hemoglobin (HGBA1C) 4020.6373 umol/L
[2024-09-03 08:50] LABS: Alanine Aminotransferase 71 U/L (0-40); Albumin Level 3.9 g/dL (3.5-5.0); Alkaline Phosphatase 100 U/L (39-117); Anion Gap 11 (12-20); Aspartate Amino Transferase 36 U/L (5-37); Bilirubin Total 0.5 mg/dL (0.0-1.0); Blood Urea Nitrogen 19 mg/dL (9-16); Carbon Dioxide 28 mmol/L (22-29); Chloride 108 mmol/L (96-108); Cholesterol 140 mg/dL (<200); Estimated Glomerular Filt Rate > 60; Glucose Random 118 mg/dL (60-115); HDL Cholesterol 42 mg/dL (>40); LDL Cholesterol Calculated 87 mg/dL (<100); Potassium 4.3 mmol/L (3.3-5.1); Sodium 143 mmol/L (135-145); Total Protein 7.4 g/dL (6.5-8.0); Triglycerides 56 mg/dL (<150)
[2024-09-03 09:11] LABS: Thyroid Stimulating Hormone 2.15 uIU/mL (0.32-4.0)
== END 2024-09-03 07:44 | disposition home or self-care (01) ==
LOC: HO.LAB 07:43
PROVIDERS: PCP Internal Medicine; Visit Provider Internal Medicine
DX: Z00.00 Encounter for general adult medical examination without abnormal findings (principal); I10 Essential (primary) hypertension; G47.33 Obstructive sleep apnea (adult) (pediatric); E78.00 Pure hypercholesterolemia, unspecified; Z13.1 Encounter for screening for diabetes mellitus
CPT/HCPCS: 36415; 80053; 80061; 83036; 84443

== ENCOUNTER 2024-10-16 10:58 | Outpatient (AMB) | payer OTHER, SELFPAY ==
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
--- OUTSIDE RECORDS SUMMARY | 2024-10-16 13:11 | XMS_ITS | Clinical Summary ---
Author Organization [facility] Address [address] [place] [address] Care Team Providers Care Sales Representative Livestock Name Role Phone Kevon Ramirez DO Primary Care Provider [phone] Surgical History Surgery Date Site/Laterality Comments COLONOSCOPY 07/27/2017 PROCEDURE: HISTORICAL COLONOSCOPY; COMMENT: abnormal OTHER SURGICAL HISTORY PROCEDURE: HISTORY OTHER; COMMENT: History of Surgery Testis Reduction Of Torsion Of Testis Bilateral Medical History Medical History Date Comments Empty sella (CMS/HCC V24) DX:Emp ty sella ([facility]) Family history of cardiomyopathy DX:Family history of [...] - 2023-2 5 season) 2024 Influenza Vaccine (Season Ended) 2025 HIB Vaccines Aged Out No longer eligi [...] age to complete this topic Meningococcal B Vaccine Aged Out No l onger eligible based on patient's age to complete [...] age to complete this topic Care Teams Sales Representative Livestock Relationship Specialty Start Date End Date Kevon Ramirez DO [address] [place] [address] PCP - General 04/27/17
--- OUTSIDE RECORDS SUMMARY | 2024-10-16 13:11 | XMS_ITS ---
Author Organization [facility] Address [address] [facility] [address] [place], [place] [phone] Care Team Providers Care Shrimper Name Role Phone Glory Ureña Primary Care Provider Unavailab Skinny Nuñez Unavailable [phone] Chai Zimmerman Unavailable Unavailable REASON FOR VISIT in lab sleep study Encounters Encounter Location Date Provider Diagnosis [facility] [address] [facility] [address] [place], [place] [phone] 03/17/2024 Skinny Barton Plan Of Treatment No Information Progress Notes * Charles MORRISDOB: 6 (49 yo M)Acc No.[id number]:03/17/2024 Patient:?Charles MORRIS :1975???Age:48 Y???Sex:Male Address:[address] [place] [address] * * Date:?
--- OUTSIDE RECORDS SUMMARY | 2024-10-16 13:11 | XMS_ITS | Encounter Summary ---
Author Organization [facility] Address [address] [place] [address] Care Team Providers Care Waterside Worker Name Role Phone Glory Delgadillo Primary Care Provider Encounter Details Date Type Department Care Team (Late st Contact Info) Description 11/28/2022 Telephone [facility] [address] [place] [address] Telephone Intake, Staff Social History Tobacco Use [...] Info) Description 01/30/2025 11:00 AM EDT Follow-Up [facility] Neurology [address] [place] [address] Chai Pacheco MD [address] [place] [address] documented as of this encounter Visit Diagnoses Not on filedocumented in this encounter Care Teams Waterside Worker Relationship Specialty Start Date End Date Glory Delgadillo [address] [place] [address] PCP - General Internal Medicine 08/15/23 documented as of this encounter
--- OUTSIDE RECORDS SUMMARY | 2024-10-16 13:11 | XMS_ITS | Patient Health Record ---
Author Organization [facility] Address [address] [place], [place] [address] Care Team Providers Care Field Marketing Lead Name Role Phone Glory Ureña Primary Care Provider Unavailab Skinny Nuñez Unavailable [phone] Chai Zimmerman Unavailable Unavailable Allergies Allergen (clinical [...] Problem Status W/U Status Risk Notes Problem 443723630 Morbid obesity (E66.01) Active confirmed Problem 73261516 Chronic fatigue (R53.82) Active confirmed Problem 46059494 HTN (hypertension) , benign (I10) Active confirmed Problem 70927347 BAMBI (obstructive sleep apnea) (G47.33) Active confirmed Vital Signs Heart Rate 65 /min 12/28/2023 Respiratory Rate 16 /min 12/28/2023 Blood pressure diastolic 70 mm Hg 12/28/2023 Height 73 in 12/28/2023 Blood pressure systolic 120 mm Hg 12/28/2023 Weight 328 lbs 12/28/2023 BMI 43.27 kg/m2 12/28/2023 Encounters Encounter Location Date Provider Diagnosis [facility] [address] [place] [address] 12/28/2023 Skinny Mick BAMBI (obstructive sleep apnea) G47.33 ; Chronic fatigue R53.82 ; Morbid obesity E66.01 ; HTN (hypertension), benign I10 and Syncope, unspecified syncope type R55 [facility] [address] [facility] [address] [place], [place] [phone] 03/17/2024 Skinny Mick [facility] [address] [place] [address] 11/01/2023 Skinny Mick [facility] [address] [place], [place] [phone] 03/11/2024 Skinny Mick [facility] [address] [place] [address] 12/26/2023 Glory Ureña Assessments Encounter Date Diagnosis [...] type (ICD-10 - R55) continue follow-up with [facility] neurology;it is unlikely that his syncopal episodes represent sleep attacks Plan Of Treatment Pending Test Test Name Order Date SLEEP STUDY CPAP/BiPAP TITRATION 024 Insurance Providers Payer Name Payer Address Payer Phone Subscriber Number Group Number Insured Name Patient Relationship to Insured Coverage Start Date Coverage End Date [employer], [facility] [address] [place] [address] [id number] Charles Morris Self - patient is the insured Medical (General) History Medical History History ICD Code BAMBI HTN hyperlipidemia empty sella Arthritis Morbid obesity Surgical History Surgery Date(Month/Year) tonsillectomy Reduction of testicular torsion
--- OUTSIDE RECORDS SUMMARY | 2024-10-16 13:11 | XMS_ITS | Encounter Summary ---
Author Organization [facility] Address [address] [place] [address] Care Team Providers Care Fuel Conversion Technician Name Role Phone Glory Delgadillo Primary Care Provider [phone] Encounter Details Date Type Department Care Team (Late st Contact Info) Description 10/26/2022 Orders Only [facility] [address] [place] [address] Provider, MD Maulik [address] [place] [address] Social History Tobacco Use Types Packs/Day [...] Info) Description 01/30/2025 11:00 AM EDT Follow-Up [facility] Neurology [address] [place] [address] Chai Pacheco MD [address] [place] [address] documented as of this encounter Procedures * Due to [place] [employer] law, this organization might not be sharing negative HIV tests. Procedure Name Priority Date/Time Associated Diagnosis Comments NEURODIAGNOSTIC - SCANNED Routine 10/26/2022 documented in this encounter Results * Due to [place] state law, this organization might not be sharing negative HIV tests. * NEURODIAGNOSTIC - SCANNED (10/26/2022) us Unknown Provider SCANNED PROCEDURES Final Res ult documented in this encounter Visit Diagnoses Not on filedocumented in this encounter Care Teams Fuel Conversion Technician Relationship Specialty Start Date End Date Elie Glory [address] [facility] [address] [place] [address] PCP - General Internal Medicine 08/15/23 documented as of this encounter
--- OUTSIDE RECORDS SUMMARY | 2024-10-16 13:11 | XMS_ITS ---
Author Organization [facility] Address [address] [place], [place] [address] Care Team Providers Care Tractor Technician Name Role Phone Glory Ureña Primary Care Provider Unavailab Skinny Nuñez Unavailable [phone] Fish Dylon Chai Unavailable Unavailable REASON FOR VISIT 3 month Titration Study follow up Encounters Encounter Location Date Provider Diagnosis [facility] [address] [place] [address] 03/19/2024 Skinny Barton Plan Of Treatment No Information Progress Notes * MORRISCharles SCHMITTDOB: 6 (49 yo M)Acc No.[id number]:03/19/2024 Patient:?Charles MORRIS Provider:Sharyn Barton MD :1975???Age:48 Y???Sex:Male Nicholas e:03/19/2024 Address: [place] Pcp:Glory Ureña Subjective: * Chief Complaints: * ???1. 3 month Titration Stud y follow up. * Medical History:? Objective: * Vitals:? Assessment: Plan: * Treatment: * Images: * Electronic signature of Kwadwo Barton on 10/16/2024 at 01:11 PM EDT Sign off status: Pending * Provider:Sharyn Barton MD Date:?03/19 Generated for Yinai ng/Facandig/eTransmitting on:?10/16/2024 01:11 PM EDT
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
--- OUTSIDE RECORDS SUMMARY | 2024-10-16 13:11 | XMS_ITS | Referral Summary ---
Author Organization [facility] Address [address] [place] [address] Care Team Providers Care Annual Giving Director Name Role Phone Glory Delgadillo Primary Care Provider [phone] Encounters Date Type Department Care Team Description 08/06/2024 Sunnova Message [facility] Neurology [address] [place] [address] Chai Pacheco MD Headache 07/25/2024 8:30 AM EST Follow-Up [facility] [address] [place] [address] 63167 Chai Pacheco MD Syncope, unspecified syncope type (Primary Dx); Autonomic dysfunction; BAMBI on CPAP; RBD (REM behavioral disorder); Seizure-like activity; Anxiety and depression 07/21/2024 Sunnova Message [facility]rology [address] [place] [address] 19581 Chai Pacheco MD EEG from Last 3 Months Allergies Active Allergy [...] history of epilepsy 11/09/2022 Family history of Nvjbw-Laduqghyn-Frndf (WPW) sy ndrome 11/09/2022 Peripheral polyneuropathy 11/09/2022 [...] Info) Description 01/30/2025 11:00 AM EDT Follow-Up [facility] Neurology [address] [place] [address] Chai Pacheco MD [address] [place] [phone] Procedures * Due to [facility] law, this organization might not be sharing negative HIV tests. Procedure Name Priority Date/Time Associated Diagnosis Comments COMPREHENSIVE METABOLIC PANEL Routine 12/29/2022 10:18 AM EDT Peripheral polyneuropathy from Last 3 Months or Most Recently Relevant to Health Maintenance Results * Due to [place] [employer] law, this organization might not be sharing negative HIV tests. * Comprehensive Metabolic Panel (12/29/2022 10:18 AM EDT) Glucose 93 65 - 99 mg/dL 12/29/2022 9:14 PM EDT [employer] Comment: ? Fasting reference interval BUN 15 7 - 25 mg/dL 12/29/2022 9:14 PM EDT [facility] Creatinine 0.88 0.60 - 1.29 mg/dL 12/29/2022 9:14 PM EDT [facility] eGFR 107 > OR = 60 mL/min/1 .73m2 12/29/2022 9:14 PM EDT [facility] Comment: The eGFR is based on the CKD-EPI 2020 equation. To calculate the new eGFR from a previous Creatinine or Cystatin C result, go to https://www.kidney.org/professionals/ kdoqi/gfr%5Fcalculator Bun/Creatinine Ratio NOT APPLICABLE (calc) 12/29/2022 9:14 PM EDT [facility] Sodium 140 135 - 146 mmol/L 12/29/2022 9:14 PM EDT [facility] Potassium 4.4 3.5 - 5.3 mmol/L 12/29/2022 9:14 PM EDT [facility] Chloride 107 98 - 110 mmol/L 12/29/2022 9:14 PM EDT [facility] Carbon Dioxide 25 20 - 32 mmol/L 12/29/2022 9:14 PM EDT [facility] Calcium 8.8 8.6 - 10.3 mg/dL 12/29/2022 9:14 PM EDT [facility] Protein, Total 6.7 6.1 - 8.1 g/dL 12/29/2022 9:14 PM EDT [facility] Albumin 4.0 3.6 - 5.1 g/dL 12/29/2022 9:14 PM EDT [facility] Globulin 2.7 1.9 - 3.7 g/dL (calc) 12/29/2022 9:14 PM EDT [facility] Albumin/Globul in Ratio 1.5 1.0 - 2.5 (calc) 12/29/2022 9:14 PM EDT [facility] Bilirubin, Total 0.6 0.2 - 1.2 mg/dL 12/29/2022 9:14 PM EDT [facility] Alkaline Phosphatase 88 36 - 130 U/L 12/29/2022 9:14 PM EDT [facility] AST 22 10 - 40 U/L 12/29/2022 9:14 PM EDT [facility] ALT 43 9 - 46 U/L 12/29/2022 9:14 PM EDT [facility] Blood Structure of peripheral vein / Unknown 12/29/2022 10:18 AM EDT 12/29/2022 5:58 PM EDT [facility]arrative [facility] - 01/01/2023 5:34 PM EDT FASTING:YES Chai Pacheco MD LAB BLOOD ORDERABLES nal Result [facility] [address] [facility] 3rd Floor, [place] [address], [place] [phone] [facility] [employer] [facility] [address] [place] [address] from Last 3 Months or Most Recently Relevant to Health Maintenance Insurance [employer] MEDICAID on file Advance Directives Documents on File Type Date Recorded Patient Turbo Electric Operator Expl anation Power of Public Health Representative 02/13/2023 2:38 PM REF IN S OUT OF NETWORK DR BRITO 01/22/2023 1 VISIT Care Teams Annual Giving Director Relationship Specialty Start Date End Date Glory Delgadillo [address] [address] PCP - General Internal Medicine 08/15/23
--- OUTSIDE RECORDS SUMMARY | 2024-10-16 13:11 | XMS_ITS ---
Author Organization [facility] Address [address] [place], [place] [id number] Care Team Providers Care Central Stores Attendant Name Role Phone Glory Ureña Primary Care Provider Unavailab Skinny Nuñez Unavailable [phone] Chai Zimmerman Unavailable Unavailable REASON FOR VISIT Reschedule Encounters Encounter Location Date Provider Diagnosis [facility] [address] [place], [place] [id number] 03/11/2024 Skinny Barton Plan Of Treatment No Information Progress Notes * Charles MORRISDOB: 6 (48 yo M)Acc No.[id number]:03/11/2024 Patient:?MORRISCharles :1975???Age:48 Y???Sex:Male Address:[address] [place] [address] * true * Date:? Generated for Lluvia muller/Arnoldo/eTransmitting on:?10/16/2024 01:11 PM EDT
== END 2024-10-16 11:55 | disposition home or self-care (01) ==
LOC: HO.HUSH 10:58
PROVIDERS: PCP Internal Medicine; Visit Provider Urology
DX: Z13.9 Encounter for screening, unspecified (principal)

== ENCOUNTER → 2024-10-16 10:58 | Outpatient (BNVA) | payer OTHER, SELFPAY | PROVIDERS: PCP Internal Medicine; Visit Provider Urology | DX: N40.1 Benign prostatic hyperplasia with lower urinary tract symptoms (principal); R35.0 Frequency of micturition | CPT/HCPCS: 81003 ==

== ENCOUNTER 2024-12-17 10:55 | Outpatient (AMB) | payer OTHER, SELFPAY ==
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
--- OUTSIDE RECORDS SUMMARY | 2024-12-17 12:25 | XMS_ITS | Patient Health Record ---
Author Organization [facility] Address [address] [place], [place] [phone] Care Team Providers Care Fruit Picker Name Role Phone Glory Ureña Primary Care Provider Unavailab Skinny Nuñez Unavailable [phone] Chai Zimmerman Unavailable Unavailable Allergies Allergen (clinical [...] Problem Status W/U Status Risk Notes Problem 268370249 Morbid obesity (E66.01) Active confirmed Problem 30250102 Chronic fatigue (R53.82) Active confirmed Problem 07060647 HTN (hypertension) , benign (I10) Active confirmed Problem 23689037 BAMBI (obstructive sleep apnea) (G47.33) Active confirmed Vital Signs Heart Rate 65 /min 12/28/2023 Respiratory Rate 16 /min 12/28/2023 Blood pressure diastolic 70 mm Hg 12/28/2023 Height 73 in 12/28/2023 Blood pressure systolic 120 mm Hg 12/28/2023 Weight 328 lbs 12/28/2023 BMI 43.27 kg/m2 12/28/2023 Encounters Encounter Location Date Provider Diagnosis [facility] [address] [place] [address] 12/28/2023 Skinny Mick BAMBI (obstructive sleep apnea) G47.33 ; Chronic fatigue R53.82 ; Morbid obesity E66.01 ; HTN (hypertension), benign I10 and Syncope, unspecified syncope type R55 [facility] [address] [facility] [address] [place], [place] [phone] 03/17/2024 Skinny Mick [facility] [address] [place], [place] [phone] 03/11/2024 Skinny Mick [facility] [address] [place] [address] 12/26/2023 Glory Ureña Assessments Encounter Date Diagnosis [...] type (ICD-10 - R55) continue follow-up with [facility] neurology;it is unlikely that his syncopal episodes represent sleep attacks Plan Of Treatment Pending Test Test Name Order Date SLEEP STUDY CPAP/BiPAP TITRATION 024 Insurance Providers Payer Name Payer Address Payer Phone Subscriber Number Group Number Insured Name Patient Relationship to Insured Coverage Start Date Coverage End Date [employer] [address] [place] [address] [id number] Charles Morris Self - patient is the insured Medical (General) History Medical History History ICD Code BAMBI HTN hyperlipidemia empty sella Arthritis Morbid obesity Surgical History Surgery Date(Month/Year) tonsillectomy Reduction of testicular torsion
== END 2024-12-17 11:50 | disposition home or self-care (01) ==
LOC: HO.HUSH 10:55
PROVIDERS: PCP Nurse Practitioner Family; Visit Provider Urology
DX: R35.0 Frequency of micturition (principal)
CPT/HCPCS: 98013

== ENCOUNTER 2025-02-27 09:21 | Outpatient (REF) | payer OTHER, SELFPAY ==
--- OUTSIDE RECORDS SUMMARY | 2025-02-27 09:29 | XMS_ITS | Clinical Summary ---
Author Organization [facility] Address [address] [place] [address] Care Team Providers Care Sanitation Tank Washer Name Role Phone Kevon Ramirez DO Primary Care Provider [phone] Surgical History Surgery Date Site/Laterality Comments COLONOSCOPY 07/27/2017 PROCEDURE: HISTORICAL COLONOSCOPY; COMMENT: abnormal OTHER SURGICAL HISTORY PROCEDURE: HISTORY OTHER; COMMENT: History of Surgery Testis Reduction Of Torsion Of Testis Bilateral Medical History Medical History Date Comments Empty sella (CMS/HCC V24) DX:Emp ty sella ([facility]) Family history of cardiomyopathy DX:Family history of [...] Panel) 06/07/2022 Colorectal Cancer Screening: Colonoscopy 06/07/2022 HIV Screening 06/07/2022 Hepatitis C Screening 06/07/2022 Social Influencers of Health Screening 06/07/2022 Hypertension/CHF/CAD Annual BMP Blood Test 06/24/2022 COVID-19 Vaccine ( - 2023-2 5 season) 2024 Depression Screening 07/09/2024 Influenza Vaccine (#1) 2025 HIB Vaccines Aged Out No longer [...] 5 Years) and At-Risk Patients (6 to 49 Years) Aged Out No longer eligible b ased on patient's age to complete this topic RSV Immunization Patients Un adria 20 months Aged Out No longer eligible b ased on patient's age to complete this topic Varicella Vaccines Aged Out No longer eligible based on patient's age to complete this topic Care Teams Sanitation Tank Washer Relationship Specialty Start Date End Date Kevon Ramirez DO [address] [place] [address] PCP - General 04/27/17
--- OUTSIDE RECORDS SUMMARY | 2025-02-27 09:29 | XMS_ITS | Patient Health Record ---
Author Organization [facility] Address [address] [place], [place] [phone] Care Team Providers Care Director Operations Name Role Phone Glory Ureña Primary Care Provider Unavailab Skinny Nuñez Unavailable [phone] Chai Zimmerman Unavailable Unavailable Allergies Allergen (clinical drug ingredient) Drug/Non Drug Allergy documented on EMR Reaction Allergy Type Onset Date Status Bee Sting anaphylaxis Allergy Active Reason For Referral No Information Medications Medication SIG (Take, Route, Frequency, Duration) Notes Start Date End Date Status Aspirin Low Dose 81 MG Oral; Duration: 90 Days Not-Taking Atorvastatin Calcium 20 MG TAKE 1 TABLET BY MOUTH EVERY DAY Oral; Duration: 90 Days Active amLODIPine Besylate 10 MG Oral; Duration: 90 Days Active Carvedilol 12.5 MG TAKE 1 TABLET BY CLINTON TH TWICE A DAY Oral; Duration: 90 Days Active Problems Problem Type SNOMED Code ICD Code Onset Dates Problem Status W/U Status Risk Notes Problem Morbid obesity (907599045) Morbid obesity (E66.01) Active confirmed Problem Chronic fatigue syndrome (06869746) Chronic fatigue (R53.82) Active confirmed Problem Essential hypertension (95017695) HTN (hypertensio n), benign (I10) Active confirmed Problem Obstructive sleep apnea syndrome (76462146) BAMBI (obstructive sleep apnea) (G47.33) Active confirmed Encounters Encounter Location Date Provider Diagnosis [facility] [address] [place] [phone] 01/27/2025 Skinny Mick [facility] - [address] [place], [place] [phone] 03/11/2024 Skinny Mick [facility] - [address] [place] [address] [place] [phone] 03/17/2024 Skinny Mick Plan Of Treatment Pending Test Test Name Order Date SLEEP STUDY CPAP/BiPAP TITRATION 024 Insurance Providers Payer Name Payer Address Payer Phone Subscriber Number Group Number Insured Name Patient Relationship to Insured Coverage Start Date Coverage End Date [employer] [address] [place] [address] [id number] Charles Morris Self - patient is the insured Medical (General) History Medical History History ICD Code BAMBI HTN hyperlipidemia empty sella Arthritis Morbid obesity Surgical History Surgery Date(Month/Year) tonsillectomy Reduction of testicular torsion
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
[2025-02-27 10:57] LABS: Hemoglobin A1C 128.4832 umol/L; Total Hemoglobin (HGBA1C) 3795.9660 umol/L
[2025-02-27 11:01] LABS: Protein/Creatinine Ratio, Ur 0.05 (<0.2); Total Protein Urine Random 11 mg/dL (<12)
[2025-02-27 11:11] LABS: Alanine Aminotransferase 33 U/L (0-40); Albumin Level 4.2 g/dL (3.5-5.0); Alkaline Phosphatase 101 U/L (39-117); Anion Gap 11 (12-20); Aspartate Amino Transferase 29 U/L (5-37); Blood Urea Nitrogen 16 mg/dL (9-16); Calcium 8.6 mg/dL (8.4-10.2); Carbon Dioxide 25 mmol/L (22-29); Chloride 110 mmol/L (96-108); Estimated Glomerular Filt Rate > 60; Potassium 3.9 mmol/L (3.3-5.1); Sodium 142 mmol/L (135-145); Thyroid Stimulating Hormone 2.45 uIU/mL (0.32-4.0); Total Protein 6.9 g/dL (6.5-8.0)
[2025-02-27 11:25] LABS: Anion Gap 11 (12-20); Blood Urea Nitrogen 16 mg/dL (9-16); Calcium 8.7 mg/dL (8.4-10.2); Carbon Dioxide 25 mmol/L (22-29); Chloride 110 mmol/L (96-108); Estimated Glomerular Filt Rate > 60; Potassium 3.9 mmol/L (3.3-5.1); Sodium 142 mmol/L (135-145)
== END 2025-02-27 09:22 | disposition home or self-care (01) ==
LOC: HO.10HDL 09:21
PROVIDERS: Referring Provider Internal Medicine; Visit Provider Internal Medicine Nephrology
DX: I10 Essential (primary) hypertension (principal); N20.0 Calculus of kidney; G47.33 Obstructive sleep apnea (adult) (pediatric); R53.83 Other fatigue; R63.4 Abnormal weight loss; R73.01 Impaired fasting glucose; R74.01 Elevation of levels of liver transaminase levels
CPT/HCPCS: 36415; 80051; 80053; 82310; 82565; 82570; 83036; 84156; 84443; 84520

== ENCOUNTER 2025-03-04 14:31 | Outpatient (AMB) | payer OTHER, SELFPAY ==
--- OUTSIDE RECORDS SUMMARY | 2024-03-19 06:15 | XMS_ITS ---
Author Organization [facility] Address [address] [place], [place] [id number] Care Team Providers Care Pepper Cutter Name Role Phone Glory Ureña Primary Care Provider Unavailab Skinny Nuñez Unavailable [phone] Fish WayloncorbinjoseChai Unavailable Unavailable REASON FOR VISIT 3 month Titration Study follow up Encounters Encounter Location Date Provider Diagnosis [facility] [address] [place] [address] 03/19/2024 Skinny Barton Plan Of Treatment No Information Progress Notes * MORRIS CharlesDOB: 6 (49 yo M)Acc No.[id number]:03/19/2024 Patient: Charles BLANCAS Provider: Ben Barton MD :1975 A ge:48 Y S ex:Male Date:03/19/2024 [place] Pcp:Glory Ureña Subjective: * Chief Complaints: * 1 . 3 month Titration Study follow up. * Medical History: Objective: * Vitals: Assessment: Plan: * Treatment: * Images: * Electronic signature of Kwadwo Barton on 03/04/2025 at 03:29 PM EDT Sign off status: Pending * Provider: Ben Barton MD Date: 03/19/2024 Generated for Printi ng/Faxing/eTransmitting on: 03/04/2025 03:29 PM EDT
--- NOTE | 2025-03-04 14:38 | HO.NEPHOV ---
Vital Signs 03/04/25 14:42 Height 6 ft Weight 312 lb 6 oz BMI 42.4 BP 110/64 Blood Pressure Location Rt brachial Position Sitting Pulse 66 Pulse Source Pulse Oximeter Pulse Oximetry (%) 96 Oxygen Delivery Method Room Air Intake Visit Reasons: 8mon follow up w/labs-Conf Library Media Assistant Required: No Accompanied by: Self / Same As Patient Allergies No Known Allergies Allergy (Verified 03/04/25 14:42) HPI Comments Details: Charles in follow up for labile hypertension. He has H/O neurological issues for which he has been seen in [facility], Division of Neurology. He underwent tilt table testing which was negative. He had skin biopsy which was positive for decreased epidermal nerve fiber density. He also had EMG and nerve conduction studies which showed mild degree of fibrillation potentials in the right tibialis anterior and medial gastrocnemius and chronic denervation in right peroneal muscle. He also has a mild L5-S1 radiculopathy, right ulnar neuropathy, mild cervical radiculopathy at C6. He also feels he has light memory loss and occasionally drops things from his right hand. He gets lightheadedness intermittently. He has H/O syncope. He is known to have hypertension as well as sleep apnea. He is on CPAP. He has high BMI. He had extensive cardiac and neurological workup. He has been on amlodipine as well as carvedilol. He denies any chest pain, shortness of breath, proximal nocturnal dyspnea, orthopnea, worsening pedal edema or urinary symptoms. He claims to be compliant with his blood pressure medications. He has no history of any drug use. He denies any flushing, diarrhea, palpitation. There is no known documented history of any autonomic neuropathy. He is not known to have any cardiomyopathy. He has no family history of any renal or neurological issues. He has H/O hematuria with left flank pain. His BP is well controlled now . He was started on Zepbound PFSH Medical History High cholesterol Chronic neurologic disease Sleep apnea Hypertension Surgical History History of testicular surgery Family History Father Diabetes Hypertension Mother Diabetes Hypertension Social History Alcohol intake: current Comment: Rare Patient Tobacco Use Status: Never used Tobacco Review of Systems Const All systems reviewed & are unremarkable except as noted in HPI and below Physical Exam Const General: comfortable and no acute distress Orientation/consciousness: patient oriented x3 HEENT Head: Yes normocephalic Mouth: Normal oral and palatal mucosa present Eyes EOM: EOMs intact bilaterally Neck Neck: Yes supple Resp Auscultation: clear to auscultation bilaterally Cardio Jugular venous distension: no JVD Rate: regular rate GI Palpation (GI): Soft to palpation Auscultation: normal bowel sounds General: Yes no CVA tenderness Back/Spine/Pelvis Back: no CVA tenderness Skin General skin exam: no rashes or lesions noted Neuro General: patient oriented x3 and moves all extremities Extrem General: Yes no pedal edema Results Reviewed Nephrology Results: Sodium, (135-145) 142 mmol/L 02/27/25 Potassium, (3.3-5.1) 3.9 mmol/L 02/27/25 Chloride, (96-108) 110 mmol/L H 02/27/25 Carbon Dioxide, (22-29) 25 mmol/L 02/27/25 BUN, (9-16) 16 mg/dL 02/27/25 Creatinine, (0.5-1.4) 0.81 mg/dL 02/27/25 Calcium, (8.4-10.2) 8.7 mg/dL 02/27/25 Urine Creatinine 209.84 mg/dL 02/27/25 Protein/Creatinin Ratio, (<0.2) 0.05 02/27/25 Renal US 03/03/24 Assessment & Plan Assessment & Plan (1) Hypertension: Code(s): I10 - Essential (primary) hypertension Category: Medical Qualifiers: Hypertension type: primary hypertension Qualified Code(s): I10 - Essential (primary) hypertension (2) Renal calculus: Code(s): N20.0 - Calculus of kidney Category: Medical Plan Charles has longstanding hypertension . He is not known to have any hypokalemia, hypercalcemia, uncontrolled thyroid disorders. He has obstructive sleep apnea and is compliant with CPAP. His renal functions had been at baseline .He is not known to have any proteinuria. I asked him to continue on his current medications for now. He has no diagnosis of POTS syndrome or any autonomic neuropathy. He has chronic neurological issues. Her follow up renal USS was OK. I plan to start him on chlorthalidone and or K citrate, if he continues to have stones. Answered all questions and follow-up appointment given Orders: Orders UA and rflx microscopic 8 Months I10 - Essential (primary) hypertension, N20.0 - Calculus of kidney Creatinine 8 Months I10 - Essential (primary) hypertension, N20.0 - Calculus of kidney Blood Urea Nitrogen 8 Months I10 - Essential (primary) hypertension, N20.0 - Calculus of kidney Protein Creatinine Ratio, Ur 8 Months I10 - Essential (primary) hypertension, N20.0 - Calculus of kidney Electrolytes 8 Months I10 - Essential (primary) hypertension, N20.0 - Calculus of kidney Coding Level of Care Code Est Pt Level 4 (35559) Diagnoses Primary hypertension I10 Hypertension type: primary hypertension Renal calculus N20.0
[2025-03-04 14:42] VITALS: BP 110/64; PULSE 66; O2SAT 96; BMI 42.4
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
--- OUTSIDE RECORDS SUMMARY | 2025-03-04 15:29 | XMS_ITS | Encounter Summary ---
Author Organization [facility] Address [address] [place] [address] Care Team Providers Care Crop Or Grain Farmer Name Role Phone Glory Delgadillo Primary Care Provider [phone] Encounter Details Date Type Department Care Team (Late st Contact Info) Description 10/26/2022 Orders Only [facility] Neurology Clinic [address] [place] [address] Provider, MD Maulik [address] [place] [phone] Social History Tobacco Use Types Packs/Day [...] Info) Description 03/05/2025 10:30 AM EDT Follow-Up [facility] - Neurology [address] [place] [phone] Chai Pacheco MD [address] [place] [address] documented as of this encounter Procedures * Due to [place] [employer] law, this organization might not be sharing negative HIV tests. Procedure Name Priority Date/Time Associated Diagnosis Comments NEURODIAGNOSTIC - SCANNED Routine 10/26/2022 documented in this encounter Results * Due to [place] state law, this organization might not be sharing negative HIV tests. * NEURODIAGNOSTIC - SCANNED (10/26/2022) us Unknown Provider MD SCANNED PROCEDURES Final Res ult documented in this encounter Visit Diagnoses Not on filedocumented in this encounter Care Teams Crop Or Grain Farmer Relationship Specialty Start Date End Date Elie Glory [address] [facility] [address] [place] [address] PCP - General Internal Medicine 08/15/23 documented as of this encounter
--- OUTSIDE RECORDS SUMMARY | 2025-03-04 15:29 | XMS_ITS | Clinical Summary ---
Author Organization [facility] Address [address] [place] [address] Care Team Providers Care Utility Maintenance Worker Name Role Phone Kevon Ramirez DO Primary Care Provider [phone] Surgical History Surgery Date Site/Laterality Comments COLONOSCOPY 07/27/2017 PROCEDURE: HISTORICAL COLONOSCOPY; COMMENT: abnormal OTHER SURGICAL HISTORY PROCEDURE: HISTORY OTHER; COMMENT: History of Surgery Testis Reduction Of Torsion Of Testis Bilateral Medical History Medical History Date Comments Empty sella (CMS/HCC V24) DX:Emp ty sella ([facility] Family history of cardiomyopathy DX:Family history of [...] age to complete this topic Care Teams Utility Maintenance Worker Relationship Specialty Start Date End Date Kevon Ramirez DO [address] [place] [address] PCP - General 04/27/17
--- OUTSIDE RECORDS SUMMARY | 2025-03-04 15:29 | XMS_ITS | Encounter Summary ---
Author Organization [facility] Address [address] [place] [address] Care Team Providers Care Speech Pathologist Name Role Phone Glory Delgadillo Primary Care Provider [phone] Encounter Details Date Type Department Care Team (Late st Contact Info) Description 02/16/2025 myChart Message [facility] Neurology [address] [place] [phone] Chai Pacheco MD [address] [place] [phone] I would really like to go back too work Social History Tobacco Use Types Packs/Day Years Used Date Smoking Tobacco: Never Assessed Sex and Gender Information Value Date Recorded Sex Assigned at Male 08/18/2022 10:14 AM EST Legal Sex Male 10:11 AM EST Gender Identity Male 08/18/2022 10:14 AM EST Sexual Orientation Straight 11/08/2022 11 :25 PM EDT documented as of this encounter Miscellaneous Notes * Telephone Encounter - Mela Brown (Silvia) - 02/25/2025 9:17 AM EDT Pt called again regarding the letter and requested that it specifically state: ???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 Without this wording, they will not be ableto use the letter to return to work. * Telephone Encounter - Mela Brown (Silvia) - 02/23/2025 4:01 PM EDT Pt called again to request a letter from you to come work since he hasn't have any seizure since last Apr. documented in this encounter Plan of Treatment Upcoming Encounters Date Type Department Care Team (Late st Contact Info) Description 03/05/2025 10:30 AM EDT Follow-Up [facility] - Neurology [address] [place] [phone] Chai Pacheco MD [address] [place] [phone] documented as of this encounter Visit Diagnoses Not on filedocumented in this encounter Care Teams Speech Pathologist Relationship Specialty Start Date End Date Glory Delgadillo [address] [facility] [address] [place] [address] PCP - General Internal Medicine 08/15/23 documented as of this encounter
--- OUTSIDE RECORDS SUMMARY | 2025-03-04 15:29 | XMS_ITS | Encounter Summary ---
Author Organization [facility] Address [address] [place] [address] Care Team Providers Care Sports Athletic Trainer Name Role Phone Glory Delgadillo Primary Care Provider [phone] Encounter Details Date Type Department Care Team (Late st Contact Info) Description 11/28/2022 Telephone [facility] [address] [place] [phone] Telephone Intake, Staff Social History Tobacco Use [...] Info) Description 03/05/2025 10:30 AM EDT Follow-Up [facility] - Neurology [address] [place] [phone] Chai Pacheco MD [address] [place] [phone] documented as of this encounter Visit Diagnoses Not on filedocumented in this encounter Care Teams Sports Athletic Trainer Relationship Specialty Start Date End Date Glory Delgadillo [address] [facility] [address] [place] [address] PCP - General Internal Medicine 08/15/23 documented as of this encounter
== END 2025-03-04 14:59 | disposition home or self-care (01) ==
LOC: HO.HKA 14:31
PROVIDERS: PCP Internal Medicine; Visit Provider Internal Medicine Nephrology
DX: I10 Essential (primary) hypertension (principal); N20.0 Calculus of kidney
CPT/HCPCS: 99214